=== PATIENT | male | born 1955 | race Caucasian/White ===

== ENCOUNTER 2016-08-31 15:39 | Inpatient (IN) ==
[2016-08-31 17:00] LABS: ALLEN TEST YES; BE -0.3 mmoll (-3.0-3.0); BLOOD TYPE ARTERIAL; DRAW SITE L RADIAL; PCO2(98.6) 38 mmHg (35-45); PO2(98.6) 65 mmHg (60-100); SAMPLE BLOOD; THB 13.8 g/dL (11.5-17.4); pH(98.6) 7.41 (7.35-7.45)
[2016-08-31 17:01] LABS: MODALITY ROOM AIR
[2016-08-31 17:13] LABS: URINE CULTURE NEEDED? NO; URINE MICRO REVIEW NEEDED? NO; URINE SOURCE CLEAN CATCH
[2016-08-31 17:17] LABS: BILIRUBIN URINE NEGATIVE (NEGATIVE); BLOOD URINE NEGATIVE (NEGATIVE); COLOR YELLOW; GLUCOSE URINE >1000 mg/dL (NEGATIVE); LEUKOCYTES URINE NEGATIVE (NEGATIVE); NITRITE URINE NEGATIVE (NEGATIVE); PH URINE 5.5; PROTEIN URINE NEGATIVE (NEGATIVE); SP GRAVITY URINE 1.012; TURBIDITY URINE CLEAR (CLEAR); UR EPITHELIAL CELLS <10 /HPF (<10); URINE BACTERIA NEGATIVE /HPF; URINE RBC <10 /HPF (<10); URINE WBC <10 /HPF (<10); UROBILINOGEN URINE NORMAL (NORMAL)
[2016-08-31 17:36] LABS: MANUAL DIFF NEEDED? NO
--- NOTE | 2016-08-31 17:38 | Diag Imaging Result Document ---
PROCEDURE NAME: HEAD W/O CONTRAST - 08/31/2016 CT OF THE HEAD WITHOUT CONTRAST: FINDINGS: There is no evidence of mass effect, bleed, or abnormal extra-axial fluid collection. There is a lacune in the caudate head on the left. Compared to 01/11/2016, there has been no significant change in the appearance of the brain. IMPRESSION: Chronic ischemic changes. No evidence of acute disease.
--- NOTE | 2016-08-31 17:44 | Diag Imaging Result Document ---
PROCEDURE NAME: CHEST-PORTABLE - 08/31/2016 AP CHEST: FINDINGS: The inspiration is suboptimal. There is opacity in the right lower lobe which is worse than on the previous study of 01/11/2016. This may represent atelectasis versus pneumonia. IMPRESSION: Possible pneumonia right lower lobe.
[2016-08-31 17:46] LABS: BASO% 0.9 % (0.0-0.8); EOS# 0.63 X1000 (0.0-0.7); HEMATOCRIT 36.3 % (42.0-52.0); HEMOGLOBIN 13.1 g/dL (14.0-18.0); IMM GRAN# 0.02 X1000 (0.0-0.04); IMM GRAN% 0.2 % (0.0-0.5); LYMPH# 3.41 X1000 (1.2-3.4); LYMPH% 32.5 % (20.5-51.1); MCHC 36.1 g/dL (33-37); MCV 88.5 FL (81-99); MONO% 18.1 % (1.7-9.3); MPV 10.6 FL (7.4-10.4); NEUT% 42.3 % (42.2-75.2); PLT 249 X1000 (130-400)
[2016-08-31 17:54] LABS: INR 1.2; PROTIME 12.7 Seconds (9.2-11.7); PTT 32.9 Seconds (22.0-36.0)
[2016-08-31 18:01] LABS: AGAP 12; ALBUMIN 3.3 g/dL (3.5-5.0); ALKALINE PHOSPHATASE 133 U/L (32-122); BUN 12 mg/dL (8-22); CALCIUM 9.2 mg/dL (8.8-10.2); CHLORIDE 100 mmol/L (98-107); CK PROFILE 143 U/L (24-204); COSMO 276; GOT 55 U/L (10-34); GPT 32 U/L (10-44); POTASSIUM 4.2 mmol/L (3.5-5.1); SODIUM 134 mmol/L (136-145); TCO2 22 mmol/L (25-35); TOTAL BILIRUBIN 1.06 mg/dL (0.20-1.00); TOTAL PROTEIN 6.9 g/dL (6.3-8.3)
--- NOTE | 2016-08-31 18:05 | PROVIDER DOCUMENTATION ---
This chart was entered by Jhonny Klein Scribe, acting as scribe for Damaso Weaver MD. HPI-Neurological Disorder - General Source: patient, family - History of Present Illness-Neuro Severity: reports: moderate Onset/Duration: reports: gradual, 24 hours ago Timing: reports: still present, constant Context: denies: impaired speech, facial droop, falling, seizure activity Character of Altered Mental Status: reports: N/A Character of Deficits: reports: new weakness. denies: impaired speech New weakness or altered sensation location:: reports: RLE Cognitive Baseline: alert, oriented x3 Gait Baseline: walks without assistance Associated Symptoms: reports: confusion, trouble walking, weakness. denies: headache, fainting, dizziness, nausea, seizures, slurred speech, vomiting Similar Symptoms Previously?: No Recently seen or treated by another doctor?: Yes <Damaso Weaver - Last Filed: 08/31/16 18:04> <López Madden - Last Filed: 08/31/16 18:12> - General Chief Complaint: Stroke-Like Symptoms Stated Complaint: SENT BY MD FOR FURTHER EVAL Time Seen by Provider: 08/31/16 16:39 Allergies/Adverse Reactions: Patient Allergies Allergy/AdvReac Type Severity Reaction Status Date / Time No Known Allergies Allergy Verified 08/31/16 17:55 Home Medications: Home Medication List Medication Instructions Recorded Confirmed Last Taken Type Cyclobenzaprine [Flexeril] 10 mg PO TID PRN 02/16/15 08/31/16 01/11/16 History Insulin Humulin 70/30 [Humulin 30 unit SUBQ QHS 02/16/15 08/31/16 01/10/16 History 70/30] Insulin Humulin 70/30 [Humulin 50 unit SUBQ QAM 02/16/15 08/31/16 01/11/16 History 70/30] Metformin HCl 1,000 mg PO BID 02/16/15 08/31/16 01/11/16 History Pantoprazole [Protonix] 40 mg PO DAILY@0700 02/16/15 08/31/16 01/11/16 History Sertraline [Zoloft] 50 mg PO DAILY 02/16/15 08/31/16 01/11/16 History Simvastatin 10 mg PO QHS 02/16/15 08/31/16 01/10/16 History Tramadol [Ultram] 50 mg PO Q6H PRN PRN 02/16/15 08/31/16 01/11/16 History Eszopiclone 2 mg PO DIRECTED 01/11/16 08/31/16 01/11/16 History Ferrous Sulfate 325 mg PO DIRECTED 01/11/16 08/31/16 01/11/16 History Gabapentin 300 mg PO DIRECTED 01/11/16 08/31/16 01/11/16 History Lactulose 30 ml PO TID #1 appful 01/13/16 08/31/16 Unknown Rx Rifaximin [Xifaxan] 550 mg PO BID #60 tablet 01/13/16 08/31/16 Unknown Rx - History of Present Illness-Neuro Nature of Presenting Problem: Patient is a 61 yo M that presents with confusion and dragging right leg. reports that symptoms began yesterday with confusion and she noticed the dragging of leg this am around 8 oclock. patient went to [place] and was told to come here. He has history of similar symptoms in the past when his ammonia level was elevated due to Non-alcoholic cirrhosis. (Jhonny Klein) Patient is a 61 yo M that presents with confusion and dragging right leg. reports that symptoms began yesterday with confusion and she noticed the dragging of leg this am around 8 oclock. patient went to [place] and was told to come here. He has history of similar symptoms in the past when his ammonia level was elevated due to Non-alcoholic cirrhosis. (Damaso Weaver) Review of Systems - Adult - REVIEW OF SYSTEMS - ADULT Constitutional: denies: chills, fever Eyes: denies: decreased vision, blurred vision, double vision Ears, Nose, Mouth & Throat: denies: ear discharge, ear pain, sinus problem, throat pain, throat swelling Cardiovascular: denies: chest pain, palpitations, syncope Respiratory: denies: chronic cough, cough, shortness of breath, wheezing Gastrointestinal: denies: abdominal pain, diarrhea, nausea, vomiting Genitourinary: reports: no symptoms reported Musculoskeletal: denies: back pain, joint pain, neck pain Integumentary: reports: no symptoms reported Neurological: reports: other (confusion, leg weakness). denies: ataxia, dizziness/vertigo, headache/migraines Psychiatric: reports: no symptoms reported Endocrine: reports: no symptoms reported Hematologic/Lymphatic: reports: no symptoms reported Allergic/Immunologic: reports: no symptoms reported All Other Systems: Reviewed and Negative <OwenDamaso Gimenez - Last Filed: 08/31/16 18:04> - REVIEW OF SYSTEMS - ADULT Constitutional: denies: fever <López Madden - Last Filed: 08/31/16 18:12> Past History - Adult - PAST MEDICAL HISTORY-ADULT Review of Records: reports: Old Records Reviewed, Nursing Assessment Review, Medications Reviewed Cardiovascular: reports: HTN Gastrointestinal: reports: GERD, liver disease (non-alcoholic cirrhosis) Musculoskeletal: reports: chronic pain (neck) Endocrine/Immune: reports: Diabetes - PRIOR SURGERIES/PROCEDURES Surgical/Procedure History: reports: orthopedic (extremity), other (spleenectomy ) - IMMUNIZATION STATUS Childhood Immunizations: See Nurse Assessment Flu Vaccine: See Nurse Assessment - FAMILY HISTORY Family History: reviewed, not pertinent - SOCIAL HISTORY Living Situation: family <Damaso Weaver - Last Filed: 08/31/16 18:04> - PAST MEDICAL HISTORY-ADULT Review of Records: reports: Old Records Reviewed, Nursing Assessment Review, Medications Reviewed, Social history reviewed & non-contributory. <López Madden - Last Filed: 08/31/16 18:12> Physical Exam- Neurological - Physical Exam-Neuro Initial Vital Signs Reviewed: Yes General Appearance: alert, no apparent distress Eye Exam: bilateral eye: normal inspection, PERRL HENMT: normocephalic/atraumatic, moist mucous membranes, normal ENT inspection Head Injury: no evidence of injury. negative: ecchymosis, flap Neck: full range of motion, normal inspection Respiratory: lungs clear, normal breath sounds, no respiratory distress, no accessory muscle use Cardiovascular: regular rate, rhythm, no edema, no murmur Abdominal Exam: normal bowel sounds, non tender, soft, no organomegaly, no pulsatile mass Extremity: normal range of motion, normal inspection, no pedal edema, normal capillary refill top taper machine Exam: normal hearing, normal speech, PERRL Motor/Sensory: no motor deficit, no sensory deficit Neurologic: top taper machine II-XII nml as tested, no motor/sensory deficits. negative: aphasia, EOM palsy, facial droop, focal weakness, motor weakness, sensory deficit Integumentary: normal color, warm/dry Psych/Mental Status: normal mood/affect, normal thought content, normal thought process, oriented x 3 - Glascow Coma Scale Best Eye Response: (4) open spontaneously Best Verbal Response: (5) oriented Best Motor Response: (6) obeys commands Total Glascow Score: 15 <Damaso Weaver - Last Filed: 08/31/16 18:04> - Physical Exam-Neuro Initial Vital Signs Reviewed: Yes General Appearance: alert, no apparent distress <López Madden - Last Filed: 08/31/16 18:12> Progress - PLAN OF CARE/RESULTS Result Diagrams: 08/31/16 17:20 08/31/16 17:20 - EKG 1 Time of EKG reading by physician:: 16:12 EKG Read and Signed by:: Damaso Weaver EKG Interpretation (*Must complete 3 of following elements*): Normal Rate: 72 Rhythm: NSR [place]: normal QRS: normal [place] Interval: normal ST Wave: normal - XRAY 1 XRAY Study: Chest Impression: Abnormal XRAY Interpretation: pneumonia vs atelectasis, RLL - CT/MRI 1 CT Study: Head Impression: Normal CT Results: nad per <Damaso Weaver - Last Filed: 08/31/16 18:04> - PLAN OF CARE/RESULTS Result Diagrams: 08/31/16 17:20 08/31/16 17:20 <López Madden - Last Filed: 08/31/16 18:12> - PLAN OF CARE/RESULTS Progress/Plan/Lab Results: Vital Signs - 8 hr 08/31/16 16:07 Temperature 97.8 F Pulse Rate 73 Respiratory Rate 20 Blood Pressure 131/60 O2 Sat by Pulse Oximetry 93 L Laboratory Results - last 24 hr 08/31/16 08/31/16 08/31/16 16:50 16:55 17:20 WBC RBC Hgb Hct MCV MCH MCHC RDW Std Deviation Plt Count MPV Immature Gran % (Auto) Neut % (Auto) Lymph % (Auto) [place] % (Auto) Eos % (Auto) Baso % (Auto) Immature Gran # (Auto) Neut # (Auto) Lymph # (Auto) [place] # (Auto) Eos # (Auto) Baso # (Auto) PT INR PTT (Actin FS) Specimen Type ARTERIAL Sample Site L RADIAL pH 7.41 pCO2 38 pO2 65 HCO3 24.6 Base Excess -0.3 Oxyhemoglobin 93.0 L ABG O2 Sat (Calculated) 18.0 ABG O2 Saturation 96.0 ABG Carboxyhemoglobin 2.10 ABG Methemoglobin 1.0 José Manuel Test YES A-a O2 Difference 37.0 Total Hemoglobin 13.8 Lactate 1.90 Blood Gas Modality ROOM AIR FiO2 % 21.0 Sodium Potassium Chloride Carbon Dioxide Anion Gap BUN Creatinine Estimated GFR/1.73 m2 BUN/Creatinine Ratio Glucose Calculated Osmolality Calcium Total Bilirubin AST ALT Alkaline Phosphatase Ammonia Creatine Kinase Troponin T Total Protein Albumin Globulin Albumin/Globulin Ratio Plasma Lactate Urine Source CLEAN CATCH Urine Color YELLOW Urine Turbidity CLEAR Urine pH 5.5 Ur Specific [place] 1.012 Urine Protein NEGATIVE Ur Glucose (Stick) >1000 A Ur Ketones (Stick) NEGATIVE Urine Blood NEGATIVE Urine Nitrite NEGATIVE Urine Bilirubin NEGATIVE Urobilinogen Dipstick NORMAL Urine Leukocytes NEGATIVE Urine WBC (Auto) <10 Urine RBC (Auto) <10 U Epithel Cells (Auto) <10 Urine Bacteria (Auto) NEGATIVE Plasma/Serum Ethyl Alc 08/31/16 08/31/16 08/31/16 17:20 17:20 17:20 WBC 10.49 RBC 4.10 L Hgb 13.1 L Hct 36.3 L MCV 88.5 MCH 32.0 H MCHC 36.1 RDW Std Deviation 15.7 H Plt Count 249 MPV 10.6 H Immature Gran % (Auto) 0.2 Neut % (Auto) 42.3 Lymph % (Auto) 32.5 [place] % (Auto) 18.1 H Eos % (Auto) 6.0 Baso % (Auto) 0.9 H Immature Gran # (Auto) 0.02 Neut # (Auto) 4.44 Lymph # (Auto) 3.41 H [place] # (Auto) 1.90 H Eos # (Auto) 0.63 Baso # (Auto) 0.09 PT INR PTT (Actin FS) Specimen Type Sample Site pH pCO2 pO2 HCO3 Base Excess Oxyhemoglobin ABG O2 Sat (Calculated) ABG O2 Saturation ABG Carboxyhemoglobin ABG Methemoglobin José Manuel Test A-a O2 Difference Total Hemoglobin Lactate Blood Gas Modality FiO2 % Sodium 134 L Potassium 4.2 Chloride 100 Carbon Dioxide 22 L Anion Gap 12 BUN 12 Creatinine 1.0 Estimated GFR/1.73 m2 > 60 BUN/Creatinine Ratio 12 Glucose 234 H Calculated Osmolality 276 Calcium 9.2 Total Bilirubin 1.06 H AST 55 H ALT 32 Alkaline Phosphatase 133 H Ammonia 108 H Creatine Kinase 143 Troponin T Total Protein 6.9 Albumin 3.3 L Globulin 3.6 Albumin/Globulin Ratio 0.9 Plasma Lactate Urine Source Urine Color Urine Turbidity Urine pH Ur Specific [place] Urine Protein Ur Glucose (Stick) Ur Ketones (Stick) Urine Blood Urine Nitrite Urine Bilirubin Urobilinogen Dipstick Urine Leukocytes Urine WBC (Auto) Urine RBC (Auto) U Epithel Cells (Auto) Urine Bacteria (Auto) Plasma/Serum Ethyl Alc 08/31/16 08/31/16 08/31/16 17:20 17:20 17:20 WBC RBC Hgb Hct MCV MCH MCHC RDW Std Deviation Plt Count MPV Immature Gran % (Auto) Neut % (Auto) Lymph % (Auto) [place] % (Auto) Eos % (Auto) Baso % (Auto) Immature Gran # (Auto) Neut # (Auto) Lymph # (Auto) [place] # (Auto) Eos # (Auto) Baso # (Auto) PT 12.7 H INR 1.20 PTT (Actin FS) 32.9 Specimen Type Sample Site pH pCO2 pO2 HCO3 Base Excess Oxyhemoglobin ABG O2 Sat (Calculated) ABG O2 Saturation ABG Carboxyhemoglobin ABG Methemoglobin José Manuel Test A-a O2 Difference Total Hemoglobin Lactate Blood Gas Modality FiO2 % Sodium Potassium Chloride Carbon Dioxide Anion Gap BUN Creatinine Estimated GFR/1.73 m2 BUN/Creatinine Ratio Glucose Calculated Osmolality Calcium Total Bilirubin AST ALT Alkaline Phosphatase Ammonia Creatine Kinase Troponin T < 0.010 Total Protein Albumin Globulin Albumin/Globulin Ratio Plasma Lactate 2.0 Urine Source Urine Color Urine Turbidity Urine pH Ur Specific [place] Urine Protein Ur Glucose (Stick) Ur Ketones (Stick) Urine Blood Urine Nitrite Urine Bilirubin Urobilinogen Dipstick Urine Leukocytes Urine WBC (Auto) Urine RBC (Auto) U Epithel Cells (Auto) Urine Bacteria (Auto) Plasma/Serum Ethyl Alc Orders Category Date Time Status Cardiac Monitoring DIRECTED Care 08/31/16 16:40 Active FSBS [Finger Stick Blood Sugar (ED)] DIRECTED Care 08/31/16 16:12 Active Oxygen Therapy- ED Nursing DIRECTED Care 08/31/16 16:40 Active Saline Loc NOW Care 08/31/16 16:40 Active CHEST-PORTABLE [RAD] Stat Exams 08/31/16 16:40 Draft HEAD W/O CONTRAST [CT] Stat Exams 08/31/16 16:44 Completed ABG [RESP] Routine Lab 08/31/16 16:50 Completed ALCOHOL BLOOD Stat Lab 08/31/16 17:20 Completed AMMONIA [CHEM] Stat Lab 08/31/16 17:20 Completed CBC WITH ELECTRONIC DIFF [HEME] Stat Lab 08/31/16 17:20 Completed CK PROFILE [SP CHEM] Stat Lab 08/31/16 17:20 Completed COMPREHENSIVE METABOLIC PANEL [CHEM] Stat Lab 08/31/16 17:20 Completed GLUCOSE [CHEM] Stat Lab 08/31/16 17:53 Ordered LACTATE, PLASMA [CHEM] Stat Lab 08/31/16 17:20 Completed PROTIME WITH INR [COAG] Stat Lab 08/31/16 17:20 Completed PTT [COAG] Stat Lab 08/31/16 17:20 Completed TROPONIN T Stat Lab 08/31/16 17:20 Completed URINALYSIS W/POSS RFLX CULT-1 [URINALYSIS] Stat Lab 08/31/16 16:55 Completed URINE DRUG SCREEN Stat Lab 08/31/16 16:55 Received Lactulose Med 08/31/16 18:06 Discontinued 30 ml PO NOW ONE Rifaximin [Xifaxan] Med 08/31/16 18:11 Once 550 mg PO NOW ONE Pulse Oximetry Stat Oth 08/31/16 16:40 Active EKG [EKG] Stat Ther 08/31/16 16:09 Ordered EKG [EKG] Stat Ther 08/31/16 16:40 Ordered Departure <Damaso Weaver X - Last Filed: 08/31/16 18:04> - Departure Time of Disposition Decision: 18:11 Certified Medical Emergency: Emergent - Critical Care Note This patient required my direct & personal management of CC.: No <López Madden - Last Filed: 08/31/16 18:12> - Departure DIAGNOSIS: Hepatic encephalopathy Disposition: ADMITTED INPATIENT 09 Condition: Fair Referrals and Follow-Ups: None,PCP [Primary Care Provider] - This chart was documented by the indicated scribe, (Jhonny Klein, Luciibleticia) and accurately reflects the services I performed and decisions made by me, Damaso Weaver MD, as attested by the provider's signature.
[2016-08-31] MEDS ORDERED: LACTULOSE PO ONE (18:06)
[2016-08-31] MEDS ORDERED: XIFAXAN PO ONE (18:11)
[2016-08-31 18:14] LABS: UR AMPHETAMINES QUAL NONE DETECTED (NONE DETECT); UR BARBITUATES QUAL NONE DETECTED (NONE DETECT); UR BENZODIAZEPIN QUAL NONE DETECTED (NONE DETECT); UR CANNABINOIDS QUAL NONE DETECTED (NONE DETECT); UR COCAINE QUAL NONE DETECTED (NONE DETECT); UR METHADONE QUAL NONE DETECTED (NONE DETECT); UR OPIATES QUAL NONE DETECTED (NONE DETECT); UR OXYCODONE QUAL NONE DETECTED (NONE DETECT); UR PCP QUAL NONE DETECTED (NONE DETECT)
[2016-08-31] MEDS ORDERED: NS 1,000 ML IV ONE (20:03)
--- NOTE | 2016-08-31 20:35 | HISTORY AND PHYSICAL ---
HISTORY OF PRESENT ILLNESS: This 61-year-old who presented with over the last several days of more confusion. He stated that his speech was slurred, a little more lethargy. They denied any fever or chills. Denied any trauma or head trauma. No real focal neurologic deficits. PAST MEDICAL HISTORY: His past medical history is interesting. 1. History of sleep apnea. 2. Diabetes mellitus type 2. 3. Dyslipidemia. 4. Nonalcoholic steatohepatitis with cirrhosis. He has had hepatic encephalopathy before. He is on lactulose. 5. 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 PAST SURGICAL HISTORY: 1. 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 2. C5-C6 fusion surgery. FAMILY HISTORY: Positive for coronary artery disease. No cancer. No other liver disease. SOCIAL HISTORY: No tobacco. No alcohol. 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 ALLERGIES: No known drug allergies. REVIEW OF SYSTEMS: He states he has been eating okay. He states his bowels have been moving okay. He reports that he is taking lactulose 45 mL 4 times a day. PHYSICAL EXAMINATION: VITAL SIGNS: Temp 97.8 degrees, pulse 70, respirations 20, blood pressure 131/60, O2 saturation 93%. HEENT: Pupils are equal and round. CVP less than 6 cm. LUNGS: Clear anterolateral. CARDIOVASCULAR: Regular rate and rhythm, without murmur or S3. ABDOMEN: Soft, nontender, nondistended. No organomegaly appreciated. A little bit uncomfortable in the right upper quadrant. I did not appreciate any ascites WEIGHT/HEIGHT: Weight 220 pounds, height 5 feet 7 inches. EXTREMITIES: Without clubbing, cyanosis, or edema. LAB: White count 10,490, hematocrit 36, platelet count 249,000. Sodium 134, potassium 4.2, chloride 100, bicarbonate 22, BUN 12, creatinine 1.0, blood sugar 234, calcium 9.2. Liver functions: AST 55, ALT 32, total bilirubin 1.06, alkaline phosphatase 133, PT was 12.5, PTT was 32. His ammonia level was 108. Toxicology: Urine drug screen really unremarkable. No sign of opiates, oxycodone, methadone, barbiturates, phencyclidine, amphetamines, benzodiazepines, cocaine, and cannabinoids. Urinalysis unremarkable. Blood sugar though was greater than 1000 in the urine screen. Glucose was 234 in the serum. Chest x-ray: Possible pneumonia in right lower lobe. CT of the head: Chronic ischemic changes. No evidence of acute disease. MEDICATIONS AT HOME: 1. Flexeril 10 mg t.i.d. 2. Zopiclone 2 mg as directed. 3. Ferrous sulfate 325 mg daily. 4. Gabapentin 300 mg a day. I am not sure how often he is taking that. 5. Humulin 70/30, 30 units at night, 50 units in the morning. 6. Lactulose 30 mL p.o. t.i.d. 7. Metformin 1000 mg b.i.d. 8. Protonix 40 mg daily. 9. Rifaximin 550 mg b.i.d. 10. Sertraline 50 mg daily. 11. Simvastatin 10 mg at bedtime. 12. Tramadol 50 mg q.6 hours. ASSESSMENT AND PLAN: 1. A little more confusion, lethargy, slurring of his words. 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 It sounds like metabolic encephalopathy most probably related to his elevated ammonia level and hepatic encephalopathy. Now he reports that he is taking his medicine like he is supposed to but he has had confusion per his . I am not sure we know that. What we will do for now is we will give him 45 mL of lactulose 4 times a day. We will make sure he is getting his rifaximin 550 mg b.i.d., and we will follow his ammonia level. I am going to ask GI to help. He is followed by a GI doctor at the [place] but he lives here and has had a couple of admissions here. It would be nice to have a electronic wirer who he could follow up with. 2. Diabetes mellitus type 2. We will check pattern sugars. I am inclined to keep him on his same insulin regimen. His sugars are running above 200. I am not sure how well we kept to that regimen either but we will check a sliding scale or check pattern sugars and put him on sliding scale in addition to his split 70/30. He did 30 units at night and 50 units in the morning. I am inclined to want to hold his metformin given his underlying liver disease and I am not sure how much benefit the metformin is going to give, so I think we may stop that for now. Continue his Protonix 40 mg a day. 3. History of hyperlipidemia. Continue simvastatin. 4. Apparently some discomfort from peripheral neuropathy so continue his gabapentin. Right now it looks like he takes 300 mg once a day but we will check on that. 5. History of depression and anxiety. Continue Zoloft. 6. We will check T4, TSH, B12 and folate. We will repeat a Chem 22 in the morning with ammonia level. We will check amylase and lipase in the morning even though no evidence of any tenderness and see what his levels are, and look at his clinical examination. 7. We will give him some fluids with normal saline. I think we will run it at 85 mL an hour for now. Apparently he has had some Lasix or was given some Lasix. I do not see that on his list so I do not see any evidence of ascites at this time. His volume status looks good. His serum creatinine was 1.0 so we will give him a little bit of fluid and see if it will help. cc: José Manuel Bahena MD
[2016-08-31] MEDS: ZOCOR PO SCH (22:53)
[2016-08-31] MEDS: LACTULOSE PO SCH (22:54)
[2016-08-31] MEDS: HUMULIN 70/30 SUBQ SCH (22:59)
[2016-08-31] MEDS: HUMALOG SUBQ SCH (22:59)
[2016-08-31] MEDS: XIFAXAN PO SCH (23:04)
[2016-09-01 05:47] LABS: HEMATOCRIT 35.8 % (42.0-52.0); HEMOGLOBIN 12.6 g/dL (14.0-18.0); MCH 31.9 PG (27-31); MCHC 35.2 g/dL (33-37); MCV 90.6 FL (81-99); MPV 10.5 FL (7.4-10.4); RBC 3.95 XMIL (4.7-6.1)
[2016-09-01 05:51] LABS: HEMOGLOBIN A1C 8.5 % (4.8-6.0)
[2016-09-01 06:38] LABS: AMYLASE 75 U/L (20-200); LIPASE 22 U/L (13-60)
[2016-09-01] MEDS: HUMALOG SUBQ SCH ×4 (06:38→22:34)
[2016-09-01] MEDS: PROTONIX PO SCH (06:38)
[2016-09-01 06:41] LABS: AGAP 12; ALKALINE PHOSPHATASE 126 U/L (32-122); BUN 12 mg/dL (8-22); CALCIUM 9.8 mg/dL (8.8-10.2); CHLORIDE 101 mmol/L (98-107); COSMO 282; GOT 58 U/L (10-34); GPT 31 U/L (10-44); HDL 31 mg/dL (35-55); IRON SATURATION 78 %; LDL 87 mg/dL; POTASSIUM 4.2 mmol/L (3.5-5.1); SODIUM 138 mmol/L (136-145); TCO2 25 mmol/L (25-35); TIBC 196 ug/dL; TOTAL BILIRUBIN 1.07 mg/dL (0.20-1.00); TOTAL IRON 152 ug/dL (53-167); TOTAL PROTEIN 6.5 g/dL (6.3-8.3); TRIGLYCERIDES 187 mg/dL (39-160); UNBOUND IRON 44 ug/dL (112-346); VLDL 37 mg/dL
--- NOTE | 2016-09-01 07:19 | EKG Report ---
Test Performed on : 08/31/2016 4:12:50 PM Test Reason : slurred speech Blood Pressure : / mmHG Vent. Rate : 072 BPM Atrial Rate : 072 BPM P-R Int : 132 ms QRS Dur : 090 ms QT Int : 390 ms P-R-T Axes : 030 -04 025 degrees QTc Int : 427 ms Normal sinus rhythm. Normal ECG No previous ECGs available Unconfirmed Result
--- NOTE | 2016-09-01 08:14 | Diag Imaging Result Doc PS360 ---
CHEST-2 VIEWS - 09/01/2016 INDICATION: Pneumonia COMPARISON: 08/31/2016 FINDINGS: The lungs are normally expanded and clear. Heart size and mediastinal contours are normal. No pneumothorax or pleural effusion. IMPRESSION: Negative exam. Electronically signed by Sergo Thibodeaux 09/01/2016 8:11 AM
--- NOTE | 2016-09-01 09:14 | Diag Imaging Result Doc PS360 ---
US ABDOMEN-COMPLETE - 09/01/2016 INDICATION: Hepatic encephalopathy COMPARISON: None FINDINGS: The liver, gallbladder, and spleen are normal. The pancreas is mostly obscured. There is a stable small right renal cyst measuring 1.7 cm. The left kidney is normal. Common bile duct measures 5 mm. Aortic, IVC, and main portal vein are patent. IMPRESSION: No change from prior. No acute disease. Electronically signed by Sergo Thibodeaux 09/01/2016 9:12 AM
[2016-09-01] MEDS: LACTULOSE PO SCH ×4 (09:40→22:34)
[2016-09-01] MEDS: XIFAXAN PO SCH ×2 (09:40→22:34)
[2016-09-01] MEDS: NEURONTIN PO SCH (09:40)
[2016-09-01] MEDS: LOVENOX SUBQ SCH (09:40)
[2016-09-01] MEDS: FERROUS SULFATE PO SCH (09:41)
[2016-09-01] MEDS: HUMULIN 70/30 SUBQ SCH ×2 (09:42→22:33)
[2016-09-01] MEDS: ZOLOFT PO SCH (09:44)
[2016-09-01 12:26] LABS: HEPATITIS PROFILE ACUTE SEE COMMENTS
--- NOTE | 2016-09-01 15:55 | PROGRESS NOTE ---
DATE: 09/01/2016 SUBJECTIVE: Patient is sitting up in bed, and he appears more alert today per at bedside. She does feel like he has had significant improvement, and was wanting to take the patient back home. OBJECTIVE: Vital signs: Temperature is 97.6 degrees, heart rate 68, respirations 16, blood pressure is 119/70, O2 is 94% on 2 L nasal cannula. General: Mr. Rendon is a pleasant 61-year-old male who is sitting up in bed, at bedside. The patient is more talkative today, did not note any slurring of his speech. feels that he is much improved today, was actually wanting to take him back home. HEENT: Atraumatic normocephalic. PERRLA. Neck: Supple. Trachea midline. CV: No murmurs, gallops, rubs noted. Respiratory: Lung sounds clear to excursion. Nonlabored breathing. GI: Soft, nontender, nondistended. Positive bowel sounds 4 quadrants. Extremities: Negative for edema. Bilateral pedal pulses are palpable. Neuro: No focal deficits noted. DIAGNOSTIC DATA: Abdominal ultrasound showed no change from prior, no acute disease. Chest x-ray shows that the lungs are normally expanded and clear. Heart size and mediastinal contours are normal. No pneumothorax or pleural effusion. LABORATORY DATA: White count is 11, hemoglobin 12, hematocrit 35, platelet count is 240,000. Chemistry: Sodium 138, potassium 4.2, BUN 12, creatinine 0.9. Blood glucose is 213, hemoglobin A1c was 8.5. Alkaline phosphatase 126, AST is 58, ALT is 31. Ammonia level was down to 98 from 108. ASSESSMENT AND PLAN: 1. Metabolic encephalopathy secondary to elevated ammonia level. The patient is more awake and alert today. Did not appreciate any slurring of speech. No focal deficits noted. We will continue on patient's lactulose and Xifaxan. 2. Diabetes mellitus type 2, uncontrolled. Continue with pattern sugars and sliding scale. 3. Nonalcoholic steatohepatitis with cirrhosis. 4. Dyslipidemia. Continue statin. 5. Sleep apnea history. 6. Idiopathic thrombocytopenic purpura status post splenomegaly. 7. Peripheral neuropathy. Continue gabapentin. 8. History of depression and anxiety. Continue Zoloft. 9. Further recommendations to follow physician evaluation. Dictated by SHARON Nevarez for José Manuel Bahena MD cc: José Manuel Bahena MD
[2016-09-01] MEDS: ZOCOR PO SCH (22:34)
[2016-09-02 05:39] LABS: HEMATOCRIT 36.7 % (42.0-52.0); HEMOGLOBIN 12.9 g/dL (14.0-18.0); MCH 31.9 PG (27-31); MCHC 35.1 g/dL (33-37); MCV 90.8 FL (81-99); MPV 10.4 FL (7.4-10.4); RBC 4.04 XMIL (4.7-6.1)
[2016-09-02 05:50] LABS: AGAP 10; ALKALINE PHOSPHATASE 126 U/L (32-122); BUN 11 mg/dL (8-22); CHLORIDE 101 mmol/L (98-107); COSMO 275; GOT 60 U/L (10-34); GPT 34 U/L (10-44); POTASSIUM 3.8 mmol/L (3.5-5.1); SODIUM 136 mmol/L (136-145); TCO2 25 mmol/L (25-35); TOTAL BILIRUBIN 1.29 mg/dL (0.20-1.00); TOTAL PROTEIN 6.7 g/dL (6.3-8.3)
[2016-09-02] MEDS: HUMALOG SUBQ SCH ×2 (06:13→11:20)
[2016-09-02 07:30] VITALS: BP 135/71
[2016-09-02] MEDS: PROTONIX PO SCH (07:35)
[2016-09-02] MEDS: HUMULIN 70/30 SUBQ SCH (09:32)
[2016-09-02] MEDS: FERROUS SULFATE PO SCH (09:32)
[2016-09-02] MEDS: ZOLOFT PO SCH (09:33)
[2016-09-02] MEDS: LOVENOX SUBQ SCH (09:33)
[2016-09-02] MEDS: NEURONTIN PO SCH (09:33)
[2016-09-02] MEDS: LACTULOSE PO SCH (09:33)
[2016-09-02] MEDS: XIFAXAN PO SCH (09:33)
--- NOTE | 2016-09-02 12:09 | DISCHARGE SUMMARY ---
ADMISSION DATE: 08/31/2016 DISCHARGE DATE: 09/02/2016 HISTORY AND HOSPITAL COURSE: This 61-year-old for the past several days had more confusion, a little bit of slurred speech, some more lethargy. Presented and his ammonia level was above 100. He did report that he was taking his medications. Did not have any tenderness. No sign of peritonitis. No sign of infection. Bowels had been moving but maybe a little bit of constipation. The patient improved. Given some IV fluids. We continued his lactulose and we went up to 45 mg 4 times a day. We kept him on rifaximin 550 mg b.i.d. [place] he could go home on 09/02/2016. Confusion much better, walking, balance good, eating well. DISCHARGE MEDICATIONS: He will go home on ferrous sulfate 325 mg a day, Neurontin 300 mg a day, insulin 70/30 which is Humulin 38 units at bedtime and 50 units q.a.m., lactulose 45 mL 4 times a day, Protonix 40 mg a day, Xifaxan which is rifaximin 550 mg b.i.d., Zoloft 50 mg a day, Zocor 10 mg a day. I gave him a work release to go back to work on the . cc: José Manuel Bahena MD
--- NOTE | 2016-09-02 20:33 | CONSULTATION ---
DATE OF CONSULTATION: 09/02/2016 PRIMARY CARE PROVIDER: [facility]. CHIEF COMPLAINT: Lethargy. HISTORY OF PRESENT ILLNESS: The patient is a 61-year-old white male who has nonalcoholic steatohepatitis with cirrhosis that has been complicated by hepatic encephalopathy. He is currently followed by the [facility] and states that he would like to return there for his ongoing care. He was admitted due to increasing slurred speech and lethargy. He admits that he had slacked off on his lactulose and become somewhat constipated. Since admission, his lactulose has been resumed and his hepatic encephalopathy has improved. The patient feels that mentally he is back to baseline. He states that he is ready to go home. We are asked to participate in his care. PAST MEDICAL HISTORY: 1. Sleep apnea. 2. Diabetes mellitus. 3. Dyslipidemia. 4. Nonalcoholic steatohepatitis. 5. Cirrhosis. 6. Hepatic encephalopathy. 7. Idiopathic thrombocytopenia. SURGICAL HISTORY: 1. Splenectomy. 2. C5-C6 fusion. FAMILY HISTORY: Negative for colon cancer and liver disease. There is a family history of coronary artery disease. SOCIAL HISTORY: Remarkable in that he denies tobacco, alcohol and recreational drug use. He is a retired . 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 He denies intravenous drug use. MEDICATION ALLERGIES: None. HOME MEDICATIONS: Were reviewed as available in the MAR. REVIEW OF SYSTEMS: Remarkable for regular defecation, on lactulose 45 mL 4 times a day. PHYSICAL EXAMINATION: Vital Signs: His blood pressure is 105/57, pulse is 71, respirations 16, temperature of 98.1 degrees. His oxygen saturation is 91% on room air, at 97% on 2 L per nasal cannula. HEENT: Negative for jaundice. His oropharyngeal mucosal membranes are normal. Pulmonary: Lungs are clear to auscultation with normal expiratory effort. Cardiovascular: Reveals regular rate and rhythm with no murmurs, gallops, or rubs. Abdominal: Reveals normoactive bowel sounds. The abdomen is soft and nontender with no rebound or guarding. He does have central adiposity. Extremities: Negative for cyanosis, clubbing, or edema. Neurologic: He is alert and oriented x3 with the appropriate mood, affect, and memory. OBJECTIVE DATA: Remarkable for hemoglobin of 12.6 with hematocrit of 35.8, and a white count of 11.66. He has 240,000 platelets. His serum chemistries are remarkable for sodium of 138, potassium 4.2, chloride 101, CO2 of 25, BUN 12, creatinine 0.9 with a glucose of 213. Hemoglobin A1c is 8.5. Calcium is 9.8, total bilirubin 1.07, AST 58, ALT 31, alkaline phosphatase 126, total protein 6.5, and albumin 3. His ammonia is 98, which is an interval improvement from his admission ammonia of 108. His plasma lactate on admission was 2. His vitamin B12 was 650 with a TSH of 6.01 and a folic acid of 13.3. His amylase and lipase are normal at 75 and 22 respectively. IMPRESSION: 1. Known nonalcoholic steatohepatitis with cirrhosis. 2. Known hepatic encephalopathy. 3. Central obesity with a body mass index of 34.5. 4. Diabetes mellitus type 2. RECOMMENDATION: 1. Since the patient has resumed his home medications, he has made an interval improvement and has returned to baseline according to his family. If his ammonia level continues to decline in the morning, he will be stable for discharge. 2. He plans to resume care at the [facility]. 3. Please note that he has a mildly elevated white count which is of unknown significance. It bears monitoring and may require further evaluation either as an inpatient or an outpatient. 4. Because the patient is being followed at the [facility], we will sign off. We are happy to be available to help manage his local care in the future. cc: MD José Manuel Branham MD [place], AL LINDEN
== END 2016-09-02 12:52 | disposition home or self-care (01) ==
LOC: ED 15:39 → 4N 19:36 → SUATTDRO 19:36
PROVIDERS: ATTEND Emergency Medicine

== ENCOUNTER 2016-11-09 15:46 | Observation (INO) ==
[2016-11-09 17:22] LABS: URINE CULTURE PL NEEDED? NO
[2016-11-09 17:34] LABS: MANUAL DIFF NEEDED? NO
[2016-11-09 17:47] LABS: UR AMPHETAMINES QUAL NONE DETECTED (NONE DETECT); UR BARBITUATES QUAL NONE DETECTED (NONE DETECT); UR BENZODIAZEPIN QUAL NONE DETECTED (NONE DETECT); UR CANNABINOIDS QUAL NONE DETECTED (NONE DETECT); UR COCAINE QUAL NONE DETECTED (NONE DETECT); UR MDMA QUAL NONE DETECTED (NONE DETECT); UR METHADONE QUAL NONE DETECTED (NONE DETECT); UR METHAMPHETAMINE QUAL NONE DETECTED (NONE DETECT); UR OPIATES QUAL PRESUMPTIVE POSITIVE (NONE DETECT); UR OXYCODONE QUAL PRESUMPTIVE POSITIVE (NONE DETECT); UR PCP QUAL NONE DETECTED (NONE DETECT); UR TCA QUAL PRESUMPTIVE POSITIVE (NONE DETECT)
[2016-11-09 17:48] LABS: BASO% 0.8 % (0.0-0.8); EOS# 0.61 X1000 (0.0-0.7); EOS% 5.5 % (0.0-10.0); HEMATOCRIT 34.8 % (42.0-52.0); HEMOGLOBIN 12.3 g/dL (14.0-18.0); IMM GRAN# 0.02 X1000 (0.0-0.04); IMM GRAN% 0.2 % (0.0-0.5); LYMPH# 3.79 X1000 (1.2-3.4); LYMPH% 34.3 % (20.5-51.1); MCH 31.9 PG (27-31); MCHC 35.3 g/dL (33-37); MCV 90.2 FL (81-99); MONO# 1.74 X1000 (0.11-0.59); MONO% 15.7 % (1.7-9.3); MPV 10.8 FL (7.4-10.4); NEUT% 43.5 % (42.2-75.2); PLT 232 X1000 (130-400); RBC 3.86 XMIL (4.7-6.1)
[2016-11-09 17:48] LABS: BILIRUBIN URINE NEGATIVE (NEGATIVE); BLOOD URINE 2+ (NEGATIVE); CLARITY CLEAR (CLEAR); COLOR YELLOW; GLUCOSE URINE NEGATIVE (NEGATIVE); LEUKOCYTES URINE NEGATIVE (NEGATIVE); NITRITE URINE NEGATIVE (NEGATIVE); PH URINE 6.5; PROTEIN URINE NEGATIVE (NEGATIVE); UROBILINOGEN URINE NORMAL
[2016-11-09 17:50] LABS: AGAP 11; ALKALINE PHOSPHATASE 133 U/L (32-122); AMYLASE 57 U/L (20-200); BUN 17 mg/dL (8-22); CALCIUM 8.8 mg/dL (8.8-10.2); CHLORIDE 98 mmol/L (98-107); COSMO 266; GOT 191 U/L (10-34); GPT 52 U/L (10-44); LIPASE 11 U/L (13-60); POTASSIUM 4.3 mmol/L (3.5-5.1); SODIUM 131 mmol/L (136-145); TCO2 23 mmol/L (25-35); TOTAL PROTEIN 6.7 g/dL (6.3-8.3)
[2016-11-09 18:09] LABS: URINE EPITHELIAL CELLS <10 /HPF (<10); URINE RBC <10 /HPF (<10); URINE SOURCE CLEAN CATCH; URINE WBC <10 /HPF (<10)
[2016-11-09] MEDS ORDERED: LACTULOSE PO ONE ×2 (18:16→22:00)
[2016-11-09] MEDS ORDERED: NS 1,000 ML IV ONE (18:16)
--- NOTE | 2016-11-09 19:17 | PROVIDER DOCUMENTATION ---
HPI-Musculoskeletal Pain/Inj - GENERAL Chief Complaint: General Adult Stated Complaint: HIP PAIN Time Seen by Provider: 11/09/16 16:24 Source: patient, family - HX OF PRESENT ILLNESS-MUSKULOSKELTAL Nature of Presenting Problem: PT C/O PAIN TO RT HIP/BUTTOCK EXTENDING INTO RT THIGH. DENIES INJURY. STS HE WAS AT COURT TRYING TO GET SS BENEFITS TODAY AND THEY THOUGHT HE WAS DRUNK. STS HE WANTS PROOF THAT HE ISN'T DRUNK SO THEY WILL GIVE HIM HIS BENEFITS. Quality of Pain: reports: dull Severity in ED: moderate Onset/Duration: 24 hours ago Timing: still present Modifying Factors: improves with: nothing Any recent injury?: No Similar Symptoms Previously?: No Recently seen or treated by another doctor?: No - LOWER EXTREMITY PAIN/INJURY Lower Extremities Pain: hip: right, thigh: right Associated Symptoms: reports: denies symptoms Review of Systems - Adult - REVIEW OF SYSTEMS - ADULT Constitutional: reports: no symptoms reported Eyes: reports: no symptoms reported Ears, Nose, Mouth & Throat: reports: no symptoms reported Cardiovascular: reports: no symptoms reported Respiratory: reports: no symptoms reported Gastrointestinal: reports: no symptoms reported Genitourinary: reports: no symptoms reported Musculoskeletal: reports: see HPI, back pain, other (LEG PAIN) Integumentary: reports: no symptoms reported Neurological: reports: no symptoms reported Psychiatric: reports: no symptoms reported Endocrine: reports: no symptoms reported Hematologic/Lymphatic: reports: no symptoms reported Allergic/Immunologic: reports: no symptoms reported All Other Systems: Reviewed and Negative Past History - Adult - PAST MEDICAL HISTORY-ADULT Review of Records: reports: Nursing Assessment Review, Medications Reviewed Major Childhood Illnesses: reports: denies history Cardiovascular: reports: HTN Gastrointestinal: reports: GERD, liver disease (non-alcoholic cirrhosis) Genitourinary: reports: denies history Musculoskeletal: reports: chronic pain (neck) Endocrine/Immune: reports: Diabetes - PRIOR SURGERIES/PROCEDURES Surgical/Procedure History: reports: orthopedic (extremity), other (spleenectomy ) - IMMUNIZATION STATUS Childhood Immunizations: See Nurse Assessment Flu Vaccine: See Nurse Assessment - FAMILY HISTORY Family History: reviewed, not pertinent Physical Exam-Injury Related - Physical Exam-Injury Related Initial Vital Signs Reviewed: Yes General Appearance: no apparent distress, obese, obtunded Eyes: PERRL/EOMI Head, Ears, Nose, Mouth & Throat: moist mucous membranes Respiratory: chest non-tender, lungs clear, normal breath sounds, no pleuratic chest pain, no respiratory distress, no accessory muscle use Cardiovascular: regular rate, rhythm Abdominal Exam: normal bowel sounds, non tender, soft, no organomegaly, no pulsatile mass Back Exam: normal inspection, no CVA tenderness, no vertebral tenderness Extremity: normal range of motion, normal gait, normal inspection, no pedal edema, no calf tenderness, normal capillary refill, tenderness (RT BUTTOCK AND THIGH) Integumentary: normal color, warm/dry Neurologic: grossly normal, no motor/sensory deficits Psych/Mental Status: oriented x 3 Progress - PLAN OF CARE/RESULTS Progress/Plan/Lab Results: Orders Category Date Time Status Admit - [facility] Routine AdmDCTranf 11/09/16 20:03 Ordered Activity - Up Ad Edith ORDERED Care 11/09/16 20:03 Active Call Admitting on Arrival AT ADMISSION Care 11/09/16 20:03 Completed Saline Loc NOW Care 11/09/16 16:57 Active Vital Signs Order ROUTINE Care 11/09/16 20:03 Active Heart Healthy Diet Diet 11/09/16 20:03 Completed ALCOHOL BLOOD Stat Lab 11/09/16 17:28 Completed AMMONIA [CHEM] Stat Lab 11/09/16 17:28 Completed AMYLASE [CHEM] Stat Lab 11/09/16 17:28 Completed CBC WITH ELECTRONIC DIFF [HEME] Stat Lab 11/09/16 17:28 Completed COMPREHENSIVE METABOLIC PANEL [CHEM] Stat Lab 11/09/16 17:28 Completed LIPASE [CHEM] Stat Lab 11/09/16 17:[address] W/POSS RFLX CULT [URINALYSIS] Stat Lab 11/09/16 17:21 Completed URINE DRUG SCREEN PL Stat Lab 11/09/16 17:21 Completed 0.9% Sodium Chloride Inj [Ns] 1,000 ml Med 11/09/16 18:16 Discontinued IV 125 mls/hr Lactulose Med 11/09/16 18:16 Discontinued 30 ml PO NOW ONE Oxygen Device Stat Oth 11/09/16 20:04 Completed Transfer/Admit Order [TRANSFER] Routine Transfer 11/09/16 20:05 Completed DISCUSSED PT EXAM, LABS, AND PLAN OF CARE WITH DR. TREVINO WHO AGREES WITH CONSULTING HOSPITALIST FOR ADMIT. Result Diagrams: 11/10/16 07:00 11/10/16 07:00 - CONSULTS/PCP/HOSPITALIST Notification #1 *Consult/PCP/Hospitalist*: DR. GALLARDO Time Discussed: 20:00 (DISCUSSED ADMISSION FOR HEPATIC ENCEPHALOPATHY.) Consult Disposition: Admit Departure - Departure Date of Disposition Decision: 11/09/16 Time of Disposition Decision: 20:00 DIAGNOSIS: Hepatic encephalopathy Sciatica Qualifiers: Laterality: right Qualified Code(s): M54.31 - Sciatica, right side Disposition: ADMITTED INPATIENT 09 Certified Medical Emergency: Emergent Condition: Good - Critical Care Note This patient required my direct & personal management of CC.: No Attestation - Physician/ NICKOLAS Attestation Patient care was provided by Advanced Practice Provider:: Yes Advanced Practice Provider:: Harriett Mcgill Advanced Practice Provider documentation review:: The Mid-level provider documentation, treatment plan and medical decision making was reviewed by the physician who agrees with all treatment and medical decision making by the P.
[2016-11-09] MEDS ORDERED: HUMULIN 70/30 (PARKWAY) SUBQ SCH (21:45)
[2016-11-09] MEDS: XIFAXAN PO SCH (22:02)
[2016-11-10] MEDS ORDERED: PROTONIX PO SCH (07:00)
[2016-11-10] MEDS ORDERED: HUMULIN 70/30 (PARKWAY) SUBQ SCH (07:00)
[2016-11-10 07:15] LABS: HEMOGLOBIN 11.5 g/dL (14.0-18.0); MCH 31.7 PG (27-31); MCHC 34.8 g/dL (33-37); MCV 90.9 FL (81-99); MPV 10.4 FL (7.4-10.4); RBC 3.63 XMIL (4.7-6.1)
[2016-11-10 07:42] LABS: AGAP 10; ALBUMIN 2.8 g/dL (3.5-5.0); ALKALINE PHOSPHATASE 109 U/L (32-122); BUN 13 mg/dL (8-22); CALCIUM 8.3 mg/dL (8.8-10.2); CHLORIDE 101 mmol/L (98-107); COSMO 274; GOT 200 U/L (10-34); GPT 53 U/L (10-44); POTASSIUM 3.4 mmol/L (3.5-5.1); SODIUM 134 mmol/L (136-145); TCO2 23 mmol/L (25-35); TOTAL PROTEIN 5.9 g/dL (6.3-8.3)
[2016-11-10] MEDS ORDERED: GLUCOPHAGE PO SCH (08:00)
[2016-11-10 08:01] VITALS: BP 125/59
[2016-11-10] MEDS: XIFAXAN PO SCH (08:19)
[2016-11-10] MEDS ORDERED: LACTULOSE PO SCH (09:00)
[2016-11-10] MEDS ORDERED: NEURONTIN PO SCH (21:00)
[2016-11-10] MEDS ORDERED: ZOCOR PO SCH (21:00)
--- NOTE | 2016-11-11 07:57 | HISTORY AND PHYSICAL ---
CHIEF COMPLAINT: Right hip pain. HISTORY OF PRESENT ILLNESS: This is a 61-year-old male with a history of diabetes type 2, nonalcoholic steatohepatitis with cirrhosis, who presented to the emergency room complaining of right hip pain that has been present for about 24 hours. He denied any injury. He states that the pain is an achy type pain that is in his right hip and buttocks and with sitting and bending it does extent into his right thigh. He denies prior pain or prior injury, although he does have a history of peripheral neuropathy. He did state that he was sitting in court for quite some time today and the pain seemed to increase while sitting. As he has walked around the pain has decreased down to 1 to 2/10. His gait is noted to be steady with 5/5 strength bilateral. He does have a history of history of nonalcoholic steatohepatitis with cirrhosis. He has had recurring bouts of hepatic encephalopathy when ammonia level is elevated. He stated that today in court the plan coordinator believed he was under the influence of alcohol. The patient is asking to have a blood alcohol drawn, which revealed none detected. He did have a positive urine drug screen for opiates, oxycodone, and tricyclics, and an ammonia level of 137. He was given IV hydration as well as lactulose in the emergency room. He is being admitted for further evaluation and treatment. PAST MEDICAL HISTORY: 1. Sleep apnea. 2. Diabetes mellitus type 2. 3. Dyslipidemia. 4. Nonalcoholic steatohepatitis with cirrhosis with recurring hepatic encephalopathy due to increased ammonia levels. 5. 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 PAST SURGICAL HISTORY: Splenectomy and C5-C6 fusion. SOCIAL HISTORY: He denies alcohol, tobacco, or illicit drug use. He is a , retired [employer]. ALLERGIES: No known drug allergies. HOME MEDICATIONS: A list will be obtained. REVIEW OF SYSTEMS: A 14 point review of systems is discussed with the patient with pertinent positives being right hip pain, chronic neck pain. He denied any chest pain, palpitations, dizziness, syncope, shortness of breath, cough, PND, orthopnea, nausea, vomiting, diarrhea, constipation, black or bloody vomitus, black or bloody stools, hematuria, dysuria, frequency, urgency. PHYSICAL EXAMINATION: GENERAL: This is a 61-year-old male who is sitting up in the bed, in no distress. VITAL SIGNS: Blood pressure is 125/59, with a heart rate of 72, respirations are 18, temperature is 97.5 degrees oral, with O2 saturations of 98 to 100% on room air. HEENT: Head is normocephalic, atraumatic. Pupils equal, round, react to light. EOMs are intact. Sclerae anicteric. Mucous membranes are moist. NECK: Supple with trachea midline. CARDIOVASCULAR: Regular rate and rhythm. S1 and S2 appreciated. No rubs, murmurs, or gallops. PULMONARY: Breath sounds are clear with no increased work of breathing noted. Chest does rise and fall symmetrically with respiration. GASTROINTESTINAL: Abdomen is soft, nontender, nondistended with bowel sounds in all 4 quadrants. MUSCULOSKELETAL: Good range of motion to joints. EXTREMITIES: No clubbing, cyanosis, or edema. Calves are nontender. Pulses are palpable x4. SKIN: Warm and dry. DIAGNOSTICS: WBC is 11, hemoglobin 12.3, hematocrit 34.8, and platelets of 232,000. Sodium 131, potassium 4.3, BUN 17, creatinine 1.1, with a glucose of 122. Total bilirubin is 1.4, with AST 191, ALT 52, alkaline phosphatase 133, ammonia 137, lipase is 11. Urinalysis is essentially negative. Blood alcohol is nondetected. ASSESSMENT: This is a 61-year-old male who is sitting up in the bed, in no distress. 1. Hepatic encephalopathy secondary to elevated ammonia. 2. Hyponatremia. 3. Diabetes type 2. 4. Chronic neck pain. 5. Leukocytosis. PLAN: He was admitted to the medical-surgical floor. His home medications were continued. We will repeat CMP and CBC, as well as ammonia level in the morning. Of note, the patient denies any right hip pain on evaluation. Further treatments pending hospital course. Dictated by SHARON Hirsch for Subhash Tate MD cc: SHARON Hirsch MD
--- NOTE | 2016-11-11 14:39 | DISCHARGE SUMMARY ---
ADMISSION DATE: 11/09/2016 DISCHARGE DATE: 11/10/2016 DIAGNOSES: 1. Hepatic encephalopathy secondary to elevated ammonia level, resolved. 2. Hyponatremia, resolved. 3. Diabetes mellitus, type 2. 4. Leukocytosis, resolved. 5. Non-alcoholic steatohepatitis with cirrhosis. 6. Elevated LFTs which is chronic. 7. Right hip pain, resolved. HOSPITAL COURSE: Mr. Rendon presented to the emergency room complaining of right hip pain that seemed to come on after setting for quite some time. The pain was almost resolved on arrival to the emergency room and it did resolve through the night. He had been at a hearing for disability, and he stated that because of slurred speech and disorientation, the tribal judge felt that he was drunk. He is asking to have a blood alcohol to prove that he is not drunk which was none detected. He was noted to have an ammonia level of 137 on admission which certainly would explain his slurred speech and disorientation. After taking lactulose, his ammonia level did decrease to 82. On review of the patient's old records, ammonia levels have ranged from the 80s to 170s through hospitalizations. We did continue all of his home medications. Thankfully, the patient's slurred speech and disorientation resolved. He is back to his normal self, and he is ready for discharge. PHYSICAL EXAMINATION: Cardiovascular: Regular rate and rhythm. S1 and S2 appreciated. Pulmonary: Breath sounds are clear with no increased work of breathing noted. Gastrointestinal: Abdomen is soft, nontender, nondistended with bowel sounds in all 4 quadrants. Neurologic: He is alert and oriented x3 with cranial nerves 2-12 grossly intact. DISCHARGE MEDICATIONS: 1. Eszopiclone 2 mg daily. 2. Zoloft 50 at bedtime. 3. Ferrous sulfate 325 t.i.d. 4. Gabapentin 300 at bedtime. 5. Humulin insulin 70/30, 50 units subcutaneous q.a.m. 6. Humulin insulin 70/30, 30 units subcutaneous at bedtime. 7. 550 p.o. b.i.d. 8. Protonix 40 mg daily. 9. Metformin a 1000 mg b.i.d. 10. Lactulose 45 mL 4 times a day. 11. Simvastatin at 10 mg at bedtime. DISCHARGE VITAL SIGNS: Blood pressure is 125/59 with a heart rate of 72. Respirations are 18. Temperature is 97.5 oral with room air saturation of 100. DISCHARGE ACTIVITY: As tolerated. FOLLOWUP: He needs to follow up with his primary care physician in the next 1-2 weeks as well as the [facility] as scheduled. He is being discharged home in stable condition with family members. This is a greater than 30 minute discharge. Dictated by SHARON Hirsch for Subhash Tate MD cc: SHARON Hirsch MD
== END 2016-11-10 12:12 | disposition home or self-care (01) ==
LOC: P.ED 15:46 → P.MEDSURG 20:22 → INTOOBSV 20:22
PROVIDERS: ATTEND Family Medicine

== ENCOUNTER 2017-01-06 10:55 | Inpatient (IN) ==
--- NOTE | 2017-01-06 11:21 | EKG Report ---
Test Performed on : 01/06/2017 10:49:44 AM Test Reason : Suspected Overdose Blood Pressure : / mmHG Vent. Rate : 066 BPM Atrial Rate : 047 BPM P-R Int : 000 ms QRS Dur : 080 ms QT Int : 448 ms P-R-T Axes : 000 010 018 degrees QTc Int : 469 ms Accelerated Junctional rhythm. Nonspecific ST abnormality Abnormal ECG When compared with ECG of 24-NOV-2016 18:43, Junctional rhythm. has replaced Sinus rhythm. Unconfirmed Result
[2017-01-06 11:27] LABS: ALLEN TEST YES; BE -3.7 mmoll (-3.0-3.0); BLOOD TYPE ARTERIAL; DRAW SITE R RADIAL; MODALITY CANNULA; O2(CT) 18.1 mL/dL (15.0-23.0); PCO2(98.6) 45 mmHg (35-45); PO2(98.6) 67 mmHg (60-100); SAMPLE BLOOD; SAO2 95.9 % (95.0-100.0); THB 13.8 g/dL (11.5-17.4); pH(98.6) 7.31 (7.35-7.45)
[2017-01-06] MEDS ORDERED: NS 1,000 ML IV ONE ×2 (11:34→12:47)
--- NOTE | 2017-01-06 11:52 | Diag Imaging Result Doc PS360 ---
CHEST-PORTABLE - 01/06/2017 INDICATION: ams TECHNIQUE: COMPARISON: 11/30/2016 FINDINGS: Lung volumes are improved. There is decrease in the trace atelectasis in the costophrenic angles bilaterally. No new or focal infiltrates. No pneumothorax or pleural effusion. Heart size and pulmonary vascularity are top normal. IMPRESSION: No specific acute disease. Electronically signed by Sergo Thibodeaux 01/06/2017 11:50 AM
[2017-01-06 11:58] LABS: INR 1.25; PROTIME 13.3 Seconds (9.2-11.7); PTT 33.7 Seconds (22.0-36.0)
[2017-01-06 12:03] LABS: URINE CULTURE NEEDED? NO; URINE MICRO REVIEW NEEDED? NO; URINE SOURCE CATH
[2017-01-06 12:09] LABS: BILIRUBIN URINE NEGATIVE (NEGATIVE); BLOOD URINE NEGATIVE (NEGATIVE); COLOR YELLOW; GLUCOSE URINE >1000 mg/dL (NEGATIVE); LEUKOCYTES URINE NEGATIVE (NEGATIVE); NITRITE URINE NEGATIVE (NEGATIVE); PROTEIN URINE TRACE mg/dL (NEGATIVE); SP GRAVITY URINE 1.021; TURBIDITY URINE CLEAR (CLEAR); UR EPITHELIAL CELLS <10 /HPF (<10); URINE BACTERIA NEGATIVE /HPF; URINE RBC <10 /HPF (<10); URINE WBC <10 /HPF (<10); UROBILINOGEN URINE NORMAL (NORMAL)
[2017-01-06 12:10] LABS: MAGNESIUM 1.9 mg/dL (1.5-2.7)
[2017-01-06 12:19] LABS: UR AMPHETAMINES QUAL NONE DETECTED (NONE DETECT); UR BARBITUATES QUAL NONE DETECTED (NONE DETECT); UR BENZODIAZEPIN QUAL NONE DETECTED (NONE DETECT); UR CANNABINOIDS QUAL NONE DETECTED (NONE DETECT); UR COCAINE QUAL NONE DETECTED (NONE DETECT); UR METHADONE QUAL NONE DETECTED (NONE DETECT); UR OPIATES QUAL PRESUMPTIVE POSITIVE (NONE DETECT); UR OXYCODONE QUAL PRESUMPTIVE POSITIVE (NONE DETECT); UR PCP QUAL NONE DETECTED (NONE DETECT)
--- NOTE | 2017-01-06 12:24 | Diag Imaging Result Doc PS360 ---
CT HEAD W/O CONTRAST - 01/06/2017 INDICATION: ams TECHNIQUE: A CT dose reduction protocol was used. 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 No intracranial mass or hemorrhage. The skull is intact. There is sinusitis of the left maxillary sinus. IMPRESSION: Sinusitis. Otherwise no acute disease or change from prior. Electronically signed by Sergo Thibodeaux 01/06/2017 12:21 PM
[2017-01-06 12:43] LABS: CK INDEX 2.9 (0.0-2.5); CK-MB 7.3 ng/mL (0.0-5.0)
[2017-01-06] MEDS ORDERED: NARCAN IV ONE (12:47)
[2017-01-06 13:51] LABS: BASO% 0.6 % (0.0-0.8); EOS# 0.97 X1000 (0.0-0.7); EOS% 7.1 % (0.0-10.0); HEMATOCRIT 35.9 % (42.0-52.0); HEMOGLOBIN 12.8 g/dL (14.0-18.0); IMM GRAN# 0.03 X1000 (0.0-0.04); IMM GRAN% 0.2 % (0.0-0.5); LYMPH# 3.65 X1000 (1.2-3.4); LYMPH% 26.7 % (20.5-51.1); MANUAL DIFF NEEDED? NO; MCH 31.9 PG (27-31); MCHC 35.7 g/dL (33-37); MCV 89.5 FL (81-99); MONO# 2.86 X1000 (0.11-0.59); MONO% 20.9 % (1.7-9.3); MPV 11.1 FL (7.4-10.4); NEUT% 44.5 % (42.2-75.2); PLT 298 X1000 (130-400); RBC 4.01 XMIL (4.7-6.1)
[2017-01-06 14:04] LABS: ACETAMINOPHEN < 1.2 ug/mL (10-30); AGAP 17; ALBUMIN 3.4 g/dL (3.5-5.0); ALKALINE PHOSPHATASE 167 U/L (32-122); BUN 14 mg/dL (8-22); CALCIUM 9.3 mg/dL (8.8-10.2); CHLORIDE 89 mmol/L (98-107); COSMO 257; GOT 58 U/L (10-34); GPT 33 U/L (10-44); POTASSIUM 4.1 mmol/L (3.5-5.1); SODIUM 126 mmol/L (136-145); TCO2 20 mmol/L (25-35); TOTAL BILIRUBIN 1.14 mg/dL (0.20-1.00); TOTAL PROTEIN 6.5 g/dL (6.3-8.3)
[2017-01-06 16:19] LABS: UR CREAT RANDOM 172.7 mg/dL (14-26)
--- NOTE | 2017-01-06 16:20 | PROVIDER DOCUMENTATION ---
This chart was entered by Jhonny Klein Scribe, acting as scribe for Hector Wilkins MD. HPI-Neurological Disorder - General Chief Complaint: Altered Mental Status Stated Complaint: unresponsive Time Seen by Provider: 01/06/17 10:59 Source: EMS Unable to obtain history due to:: altered Allergies/Adverse Reactions: Patient Allergies Allergy/AdvReac Type Severity Reaction Status Date / Time No Known Allergies Allergy Verified 01/06/17 12:00 Home Medications: Home Medication List Medication Instructions Recorded Confirmed Last Taken Type Insulin Humulin 70/30 [Humulin 30 unit SUBQ QHS 02/16/15 01/06/17 11/24/16 History 70/30] Insulin Humulin 70/30 [Humulin 50 unit SUBQ [facility] 02/16/15 01/06/17 11/24/16 History 70/30] Pantoprazole [Protonix] 40 mg PO DAILY@0700 02/16/15 01/06/17 11/24/16 History Sertraline [Zoloft] 50 mg PO HS 02/16/15 01/06/17 11/24/16 History Ferrous Sulfate 325 mg PO TID 01/11/16 01/06/17 11/24/16 History Gabapentin 300 mg PO QHS 01/11/16 01/06/17 11/24/16 History Rifaximin [Xifaxan] 550 mg PO BID #60 tablet 01/13/16 01/06/17 11/24/16 Rx Cyclobenzaprine [Flexeril] 10 mg PO BID 11/25/16 01/06/17 Unknown History Ergocalciferol (Vitamin D2) 50,000 unit PO Q7D #10 capsule 12/02/16 01/06/17 Unknown Rx [Vitamin D] Zinc Sulfate 220 mg PO DAILY #60 capsule 12/02/16 01/06/17 Unknown Rx Atorvastatin Calcium [Lipitor] 40 mg PO DAILY 01/06/17 01/06/17 Unknown History Furosemide [Lasix] 20 mg PO DAILY 01/06/17 01/06/17 Unknown History Losartan [Cozaar] 25 mg PO DAILY 01/06/17 01/06/17 Unknown History Nadolol [Corgard] 10 mg PO DAILY 01/06/17 01/06/17 Unknown History Spironolactone [Aldactone] 100 mg PO DAILY 01/06/17 01/06/17 Unknown History Tamsulosin HCl 1 tab PO QHS 01/06/17 01/06/17 Unknown History - History of Present Illness-Neuro Nature of Presenting Problem: patient is a 61 yo M that presents to the ER via EMS after being found unresponsive at home by 's home health nurse. He an empty bottle of Phenergan at his bedside. Patient was found to have slow to no respirations by EMS. he was give O2, 4mg of zofran, and 2mg of narcan and began to have some response. Severity: reports: moderate, severe Onset/Duration: reports: abrupt, this morning Timing: reports: still present Context: reports: found unresponsive by bystander (home health) Character of Altered Mental Status: reports: unresponsive Cognitive Baseline: alert, oriented x3 Gait Baseline: walks without assistance Associated Symptoms: reports: short of breath. denies: fever/chills, vomiting Similar Symptoms Previously?: No Recently seen or treated by another doctor?: No Review of Systems - Adult - REVIEW OF SYSTEMS - ADULT ROS:: unobtainable per condition Constitutional: reports: see HPI Eyes: reports: see HPI Ears, Nose, Mouth & Throat: reports: see HPI Cardiovascular: reports: see HPI Respiratory: reports: see HPI Gastrointestinal: reports: see HPI Neurological: reports: see HPI Psychiatric: reports: see HPI All Other Systems: Reviewed and Negative Past History - Adult - PAST MEDICAL HISTORY-ADULT Review of Records: reports: Old Records Reviewed, Nursing Assessment Review, Medications Reviewed Cardiovascular: reports: HTN Gastrointestinal: reports: GERD, liver disease (non-alcoholic cirrhosis) Musculoskeletal: reports: chronic pain (neck) Neurological: reports: CVA Endocrine/Immune: reports: Diabetes Diabetes controlled by:: Insulin Dependent - PRIOR SURGERIES/PROCEDURES Surgical/Procedure History: reports: colonoscopy, orthopedic (extremity), other (spleenectomy) - IMMUNIZATION STATUS Childhood Immunizations: See Nurse Assessment Flu Vaccine: See Nurse Assessment - FAMILY HISTORY Family History: reviewed, not pertinent - SOCIAL HISTORY Smoking: quit greater than 1 year, cigarettes Living Situation: family Physical Exam- Neurological - Physical Exam-Neuro Exam Limited by: limit to condition General Appearance: moderate distress, lethargic, slow to respond Eye Exam: bilateral eye: PERRL (4mm) HENMT: normocephalic/atraumatic, moist mucous membranes, normal ENT inspection Neck: full range of motion, normal inspection Respiratory: respiratory distress (mild to moderate), decreased rate (shallow resp). negative: rhonchi, stridor, wheezing Cardiovascular: regular rate, rhythm, no edema Abdominal Exam: normal bowel sounds, no pulsatile mass, distended, hepatomegaly Extremity: no pedal edema, normal capillary refill, pelvis stable Neurologic: negative: facial droop, focal weakness, motor weakness Integumentary: normal color, warm/dry Psych/Mental Status: other (slow to responds, a/o x 1,). negative: paranoid - Glascow Coma Scale Best Eye Response: (2) open to pain Best Verbal Response: (3) inappropriate words Best Motor Response: (5) localizes to pain Total Glascow Score: 10 Progress - PLAN OF CARE/RESULTS Progress/Plan/Lab Results: Vital Signs - 8 hr 01/06/17 10:54 01/06/17 12:24 01/06/17 12:43 Temperature 97.7 F Pulse Rate 65 71 74 Respiratory Rate 25 H 14 13 Blood Pressure 93/60 90/48 85/53 O2 Sat by Pulse Oximetry 90 L 94 L 93 L 01/06/17 13:00 01/06/17 13:17 01/06/17 14:43 Temperature Pulse Rate 75 76 68 Respiratory Rate 17 20 18 Blood Pressure 158/83 94/63 123/82 O2 Sat by Pulse Oximetry 94 L 99 93 L 01/06/17 15:03 Temperature Pulse Rate 76 Respiratory Rate 14 Blood Pressure 82/54 O2 Sat by Pulse Oximetry 93 L Laboratory Results - last 24 hr 01/06/17 01/06/17 01/06/17 11:05 11:09 11:09 WBC RBC Hgb Hct MCV MCH MCHC RDW Std Deviation Plt Count MPV Immature Gran % (Auto) Neut % (Auto) Lymph % (Auto) Tripp % (Auto) Eos % (Auto) Baso % (Auto) Immature Gran # (Auto) Neut # (Auto) Lymph # (Auto) Tripp # (Auto) Eos # (Auto) Baso # (Auto) PT INR PTT (Actin FS) Specimen Type Sample Site pH pCO2 pO2 HCO3 Base Excess Oxyhemoglobin ABG O2 Sat (Calculated) ABG O2 Saturation ABG Carboxyhemoglobin ABG Methemoglobin José Manuel Test A-a O2 Difference Total Hemoglobin Lactate Liter Flow Blood Gas Modality FiO2 % Sodium Potassium Chloride Carbon Dioxide Anion Gap BUN Creatinine Estimated GFR/1.73 m2 BUN/Creatinine Ratio Glucose POC Glucose 152 H Calculated Osmolality Calcium Magnesium 1.9 Total Bilirubin AST ALT Alkaline Phosphatase Ammonia 55 Creatine Kinase 248 H Creatine Kinase Index 2.9 H CK-MB (CK-2) 7.30 H Troponin T Foj-F-Igrlsogkstj Pept Total Protein Albumin Globulin Albumin/Globulin Ratio Plasma Lactate Urine Source Urine Color Urine Turbidity Urine pH Ur Specific Wilson Urine Protein Ur Glucose (Stick) Ur Ketones (Stick) Urine Blood Urine Nitrite Urine Bilirubin Urobilinogen Dipstick Urine Leukocytes Urine WBC (Auto) Urine RBC (Auto) U Epithel Cells (Auto) Urine Bacteria (Auto) Urine Osmolality Ur Random Creatinine Ur Random Sodium Ur Random Potassium Salicylates Urine Opiates Screen Ur Oxycodone Screen Ur Methadone, Qual Acetaminophen Ur Barbiturates Screen Ur Phencyclidine Scrn Ur Amphetamines Screen U Benzodiazepines Scrn Urine Cocaine Screen U Cannabinoids Screen Plasma/Serum Ethyl Alc 01/06/17 01/06/17 01/06/17 11:09 11:09 11:09 WBC RBC Hgb Hct MCV MCH MCHC RDW Std Deviation Plt Count MPV Immature Gran % (Auto) Neut % (Auto) Lymph % (Auto) Tripp % (Auto) Eos % (Auto) Baso % (Auto) Immature Gran # (Auto) Neut # (Auto) Lymph # (Auto) Tripp # (Auto) Eos # (Auto) Baso # (Auto) PT 13.3 H INR 1.25 PTT (Actin FS) 33.7 Specimen Type Sample Site pH pCO2 pO2 HCO3 Base Excess Oxyhemoglobin ABG O2 Sat (Calculated) ABG O2 Saturation ABG Carboxyhemoglobin ABG Methemoglobin José Manuel Test A-a O2 Difference Total Hemoglobin Lactate Liter Flow Blood Gas Modality FiO2 % Sodium Potassium Chloride Carbon Dioxide Anion Gap BUN Creatinine Estimated GFR/1.73 m2 BUN/Creatinine Ratio Glucose POC Glucose Calculated Osmolality Calcium Magnesium Total Bilirubin AST ALT Alkaline Phosphatase Ammonia Creatine Kinase Creatine Kinase Index CK-MB (CK-2) Troponin T Sin-W-Gzmnkrbscmw Pept 47 Total Protein Albumin Globulin Albumin/Globulin Ratio Plasma Lactate 2.3 H Urine Source Urine Color Urine Turbidity Urine pH Ur Specific Wilson Urine Protein Ur Glucose (Stick) Ur Ketones (Stick) Urine Blood Urine Nitrite Urine Bilirubin Urobilinogen Dipstick Urine Leukocytes Urine WBC (Auto) Urine RBC (Auto) U Epithel Cells (Auto) Urine Bacteria (Auto) Urine Osmolality Ur Random Creatinine Ur Random Sodium Ur Random Potassium Salicylates Urine Opiates Screen Ur Oxycodone Screen Ur Methadone, Qual Acetaminophen Ur Barbiturates Screen Ur Phencyclidine Scrn Ur Amphetamines Screen U Benzodiazepines Scrn Urine Cocaine Screen U Cannabinoids Screen Plasma/Serum Ethyl Alc 01/06/17 01/06/17 01/06/17 11:09 11:09 11:09 WBC RBC Hgb Hct MCV MCH MCHC RDW Std Deviation Plt Count MPV Immature Gran % (Auto) Neut % (Auto) Lymph % (Auto) Tripp % (Auto) Eos % (Auto) Baso % (Auto) Immature Gran # (Auto) Neut # (Auto) Lymph # (Auto) Tripp # (Auto) Eos # (Auto) Baso # (Auto) PT INR PTT (Actin FS) Specimen Type Sample Site pH pCO2 pO2 HCO3 Base Excess Oxyhemoglobin ABG O2 Sat (Calculated) ABG O2 Saturation ABG Carboxyhemoglobin ABG Methemoglobin José Manuel Test A-a O2 Difference Total Hemoglobin Lactate Liter Flow Blood Gas Modality FiO2 % Sodium 126 L Potassium 4.1 Chloride 89 L Carbon Dioxide 20 L Anion Gap 17 BUN 14 Creatinine 1.9 H Estimated GFR/1.73 m2 36 BUN/Creatinine Ratio 7 Glucose 153 H POC Glucose Calculated Osmolality 257 Calcium 9.3 Magnesium Total Bilirubin 1.14 H AST 58 H ALT 33 Alkaline Phosphatase 167 H Ammonia Creatine Kinase Creatine Kinase Index CK-MB (CK-2) Troponin T < 0.010 Oed-X-Xomqmmjxriv Pept Total Protein 6.5 Albumin 3.4 L Globulin 3.1 Albumin/Globulin Ratio 1.1 Plasma Lactate Urine Source Urine Color Urine Turbidity Urine pH Ur Specific Wilson Urine Protein Ur Glucose (Stick) Ur Ketones (Stick) Urine Blood Urine Nitrite Urine Bilirubin Urobilinogen Dipstick Urine Leukocytes Urine WBC (Auto) Urine RBC (Auto) U Epithel Cells (Auto) Urine Bacteria (Auto) Urine Osmolality Ur Random Creatinine Ur Random Sodium Ur Random Potassium Salicylates < 3.00 L Urine Opiates Screen Ur Oxycodone Screen Ur Methadone, Qual Acetaminophen < 1.2 L Ur Barbiturates Screen Ur Phencyclidine Scrn Ur Amphetamines Screen U Benzodiazepines Scrn Urine Cocaine Screen U Cannabinoids Screen Plasma/Serum Ethyl Alc 09/20/17 09/20/17 09/20/17 11:09 11:17 11:45 WBC 13.66 H RBC 4.01 L Hgb 12.8 L Hct 35.9 L MCV 89.5 MCH 31.9 H MCHC 35.7 RDW Std Deviation 14.4 Plt Count 298 MPV 11.1 H Immature Gran % (Auto) 0.2 Neut % (Auto) 44.5 Lymph % (Auto) 26.7 Tripp % (Auto) 20.9 H Eos % (Auto) 7.1 Baso % (Auto) 0.6 Immature Gran # (Auto) 0.03 Neut # (Auto) 6.07 Lymph # (Auto) 3.65 H Tripp # (Auto) 2.86 H Eos # (Auto) 0.97 H Baso # (Auto) 0.08 PT INR PTT (Actin FS) Specimen Type ARTERIAL Sample Site R RADIAL pH 7.31 L pCO2 45 pO2 67 HCO3 21.9 Base Excess -3.7 L Oxyhemoglobin 93.1 L ABG O2 Sat (Calculated) 18.1 ABG O2 Saturation 95.9 ABG Carboxyhemoglobin 1.90 ABG Methemoglobin 1.0 José Manuel Test YES A-a O2 Difference 76.0 Total Hemoglobin 13.8 Lactate 2.50 H Liter Flow 2.0 Blood Gas Modality CANNULA FiO2 % 28.0 Sodium Potassium Chloride Carbon Dioxide Anion Gap BUN Creatinine Estimated GFR/1.73 m2 BUN/Creatinine Ratio Glucose POC Glucose Calculated Osmolality Calcium Magnesium Total Bilirubin AST ALT Alkaline Phosphatase Ammonia Creatine Kinase Creatine Kinase Index CK-MB (CK-2) Troponin T Mvp-Q-Xhnefrpymty Pept Total Protein Albumin Globulin Albumin/Globulin Ratio Plasma Lactate Urine Source Urine Color Urine Turbidity Urine pH Ur Specific Wilson Urine Protein Ur Glucose (Stick) Ur Ketones (Stick) Urine Blood Urine Nitrite Urine Bilirubin Urobilinogen Dipstick Urine Leukocytes Urine WBC (Auto) Urine RBC (Auto) U Epithel Cells (Auto) Urine Bacteria (Auto) Urine Osmolality 461 Ur Random Creatinine Ur Random Sodium Ur Random Potassium Salicylates Urine Opiates Screen Ur Oxycodone Screen Ur Methadone, Qual Acetaminophen Ur Barbiturates Screen Ur Phencyclidine Scrn Ur Amphetamines Screen U Benzodiazepines Scrn Urine Cocaine Screen U Cannabinoids Screen Plasma/Serum Ethyl Alc 01/06/17 01/06/17 01/06/17 11:45 11:48 11:50 WBC RBC Hgb Hct MCV MCH MCHC RDW Std Deviation Plt Count MPV Immature Gran % (Auto) Neut % (Auto) Lymph % (Auto) Tripp % (Auto) Eos % (Auto) Baso % (Auto) Immature Gran # (Auto) Neut # (Auto) Lymph # (Auto) Tripp # (Auto) Eos # (Auto) Baso # (Auto) PT INR PTT (Actin FS) Specimen Type Sample Site pH pCO2 pO2 HCO3 Base Excess Oxyhemoglobin ABG O2 Sat (Calculated) ABG O2 Saturation ABG Carboxyhemoglobin ABG Methemoglobin José Manuel Test A-a O2 Difference Total Hemoglobin Lactate Liter Flow Blood Gas Modality FiO2 % Sodium Potassium Chloride Carbon Dioxide Anion Gap BUN Creatinine Estimated GFR/1.73 m2 BUN/Creatinine Ratio Glucose POC Glucose Calculated Osmolality Calcium Magnesium Total Bilirubin AST ALT Alkaline Phosphatase Ammonia Creatine Kinase Creatine Kinase Index CK-MB (CK-2) Troponin T Rki-N-Kjehdmxpfyk Pept Total Protein Albumin Globulin Albumin/Globulin Ratio Plasma Lactate Urine Source CATH Urine Color YELLOW Urine Turbidity CLEAR Urine pH 5.0 Ur Specific Wilson 1.021 Urine Protein TRACE A Ur Glucose (Stick) >1000 A Ur Ketones (Stick) TRACE A Urine Blood NEGATIVE Urine Nitrite NEGATIVE Urine Bilirubin NEGATIVE Urobilinogen Dipstick NORMAL Urine Leukocytes NEGATIVE Urine WBC (Auto) <10 Urine RBC (Auto) <10 U Epithel Cells (Auto) <10 Urine Bacteria (Auto) NEGATIVE Urine Osmolality Ur Random Creatinine 172.7 H Ur Random Sodium 18 Ur Random Potassium 42.4 Salicylates Urine Opiates Screen PRESUMPTIVE POSITIVE A Ur Oxycodone Screen PRESUMPTIVE POSITIVE A Ur Methadone, Qual NONE DETECTED Acetaminophen Ur Barbiturates Screen NONE DETECTED Ur Phencyclidine Scrn NONE DETECTED Ur Amphetamines Screen NONE DETECTED U Benzodiazepines Scrn NONE DETECTED Urine Cocaine Screen NONE DETECTED U Cannabinoids Screen NONE DETECTED Plasma/Serum Ethyl Alc 01/06/17 13:41 WBC RBC Hgb Hct MCV MCH MCHC RDW Std Deviation Plt Count MPV Immature Gran % (Auto) Neut % (Auto) Lymph % (Auto) Tripp % (Auto) Eos % (Auto) Baso % (Auto) Immature Gran # (Auto) Neut # (Auto) Lymph # (Auto) Tripp # (Auto) Eos # (Auto) Baso # (Auto) PT INR PTT (Actin FS) Specimen Type Sample Site pH pCO2 pO2 HCO3 Base Excess Oxyhemoglobin ABG O2 Sat (Calculated) ABG O2 Saturation ABG Carboxyhemoglobin ABG Methemoglobin José Manuel Test A-a O2 Difference Total Hemoglobin Lactate Liter Flow Blood Gas Modality FiO2 % Sodium Potassium Chloride Carbon Dioxide Anion Gap BUN Creatinine Estimated GFR/1.73 m2 BUN/Creatinine Ratio Glucose POC Glucose Calculated Osmolality Calcium Magnesium Total Bilirubin AST ALT Alkaline Phosphatase Ammonia Creatine Kinase Creatine Kinase Index CK-MB (CK-2) Troponin T Ton-P-Idbxeozwkpp Pept Total Protein Albumin Globulin Albumin/Globulin Ratio Plasma Lactate 2.0 Urine Source Urine Color Urine Turbidity Urine pH Ur Specific Wilson Urine Protein Ur Glucose (Stick) Ur Ketones (Stick) Urine Blood Urine Nitrite Urine Bilirubin Urobilinogen Dipstick Urine Leukocytes Urine WBC (Auto) Urine RBC (Auto) U Epithel Cells (Auto) Urine Bacteria (Auto) Urine Osmolality Ur Random Creatinine Ur Random Sodium Ur Random Potassium Salicylates Urine Opiates Screen Ur Oxycodone Screen Ur Methadone, Qual Acetaminophen Ur Barbiturates Screen Ur Phencyclidine Scrn Ur Amphetamines Screen U Benzodiazepines Scrn Urine Cocaine Screen U Cannabinoids Screen Plasma/Serum Ethyl Alc Orders Category Date Time Status Cardiac Monitoring DIRECTED Care 01/06/17 11:00 Active Cardiac Monitoring DIRECTED Care 01/06/17 11:01 Active Finger Stick Blood Sugar (ED) DIRECTED Care 01/06/17 11:01 Active Oxygen Therapy- ED Nursing DIRECTED Care 01/06/17 11:00 Active Saline Loc DIRECTED Care 01/06/17 11:01 Active Saline Loc NOW Care 01/06/17 11:00 Active CHEST-PORTABLE [RAD] Stat Exams 01/06/17 11:[address] HEAD W/O CONTRAST [CT] Stat Exams 01/06/17 11:33 Completed US ABDOMEN-COMPLETE [US] Stat Exams 01/06/17 15:49 Ordered ABG [RESP] Routine Lab 01/06/17 11:17 Completed ACETAMINOPHEN [TDM] Stat Lab 01/06/17 11:09 Completed ALCOHOL BLOOD Stat Lab 01/06/17 11:09 Completed AMMONIA [CHEM] Stat Lab 01/06/17 11:09 Completed BLOOD CULTURE [BLDCUL] Stat Lab 01/06/17 11:50 Received CBC WITH ELECTRONIC DIFF [HEME] Stat Lab 01/06/17 11:09 Completed CK PROFILE [SP CHEM] Stat Lab 01/06/17 11:09 Completed COMPREHENSIVE METABOLIC PANEL [CHEM] Stat Lab 01/06/17 11:09 Completed FREE T4 Routine Lab 01/06/17 11:09 Received LACTATE, PLASMA [CHEM] Stat Lab 01/06/17 11:09 Completed LACTATE, PLASMA [CHEM] Stat Lab 01/06/17 13:41 Completed MAGNESIUM [CHEM] Stat Lab 01/06/17 11:09 Completed PRO B-NATRIURETIC PEPTIDE Stat Lab 01/06/17 11:09 Completed PROTIME WITH INR [COAG] Stat Lab 01/06/17 11:09 Completed PTT [COAG] Stat Lab 01/06/17 11:09 Completed SALICYLATES [TDM] Stat Lab 01/06/17 11:09 Completed TROPONIN T Stat Lab 01/06/17 11:09 Completed TSH Routine Lab 01/07/17 06:00 Ordered UA NIMS W/REFLEX CULT [URINALYSIS] Stat Lab 01/06/17 11:48 Completed UR CHLORIDE [URCHEM] Routine Lab 01/06/17 11:45 Received UR CREAT RANDOM [URCHEM] Timed Lab 01/06/17 11:45 Completed UR OSMOLALITY [CHEM] Timed Lab 01/06/17 11:45 Completed UR POTASSIUM [URCHEM] Routine Lab 01/06/17 11:45 Completed UR SODIUM [URCHEM] Timed Lab 01/06/17 11:45 Completed URINE DRUG SCREEN Stat Lab 01/06/17 11:50 Completed VITAMIN B12 Timed Lab 01/06/17 11:09 Received 0.9% Sodium Chloride Inj [Ns] 1,000 ml Med 01/06/17 11:34 Discontinued IV 999 mls/hr 0.9% Sodium Chloride Inj [Ns] 1,000 ml Med 01/06/17 12:47 Discontinued IV Wide Open Naloxone [Narcan] Med 01/06/17 12:47 Discontinued 2 mg IV NOW ONE Pulse Oximetry Stat Oth 01/06/17 11:01 Active EKG [EKG] Stat Ther 01/06/17 11:01 Draft Echo Spec/Color Dop W/O Contra Routine Ther 01/06/17 15:50 Ordered Transfer/Admit Order [TRANSFER] Routine Transfer 01/06/17 15:43 Ordered Result Diagrams: 01/06/17 11:09 01/06/17 11:09 - REASSESSMENT Reassessment #1 Time Reassessed: 12:48 Status: other Reassessment Comment: narcan ordered Reassessment #2 Time Reassessed: 13:20 Status: unchanged (after getting 2mg of Narcan IV, patient remained lethargic with no response to narcan) Reassessment Comment: see note Reassessment #3 Time Reassessed: 14:15 Status: unchanged Reassessment Comment: still sleeping - EKG 1 Time of EKG reading by physician:: 12:00 EKG Read and Signed by:: Hector Wilkins EKG Interpretation (*Must complete 3 of following elements*): Abnormal Rate: 66 Rhythm: accelerated junctional rhythm QRS: normal ST Wave: non-specific ST changes - XRAY 1 XRAY Study: Chest Impression: Normal XRAY Interpretation: nad - CT/MRI 1 CT Study: Head Impression: Abnormal CT Results: sinusitis, stable 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 - CONSULTS/PCP/HOSPITALIST Notification #1 *Consult/PCP/Hospitalist*: Eric with hospitalist Time Discussed: 14:30 Consult Disposition: Will see in ED, Admit Departure - Departure Date of Disposition Decision: 01/06/17 Time of Disposition Decision: 14:32 DIAGNOSIS: Hypotension, Decreased responsiveness, Altered mental status, Cirrhosis of liver, Overuse of medication Disposition: ADMITTED INPATIENT 09 Certified Medical Emergency: Emergent Condition: Stable Referrals and Follow-Ups: None,PCP [Primary Care Provider] - - Critical Care Note This patient required my direct & personal management of CC.: Yes Total Time (mins): 35 Critical Care Statement: This patient required my direct personal management to treat or rule out processes, the absence of which, could potentiallly result in sudden, clinically significant life or limb threatening deterioration. Attestation - Physician/ NICKOLAS Attestation The physician spent face to face time with patient:: Yes Advanced Practice Provider documentation review:: Supervising physician onsite and consulted in the evaluation and care of this patient. The physician did have a face to face encounter with the patient. This chart was documented by the indicated scribe, (Jhonny Klein, Scribe) and accurately reflects the services I performed and decisions made by me, Hector Wilkins MD, as attested by the provider's signature.
[2017-01-06] MEDS: HUMALOG SUBQ SCH ×2 (17:02→21:45)
[2017-01-06] MEDS ORDERED: VITAMIN D PO SCH (17:02)
--- NOTE | 2017-01-06 17:56 | Diag Imaging Result Doc PS360 ---
US ABDOMEN-COMPLETE - 01/06/2017 INDICATION: hypotension, cirrhosis, long COMPARISON: CT from 11/27/2016 FINDINGS: The liver is atrophic with a nodular contour compatible with cirrhosis. There is nonspecific gallbladder wall thickening is seen in cirrhotic patients. No tenderness over the gallbladder. Common bile duct measures 3 mm. There is a right renal cyst measuring 1.9 cm. This is stable from the prior CT. Otherwise both kidneys are normal. Pancreas and spleen are normal. Aorta, IVC, and main portal vein are patent. IMPRESSION: Advanced cirrhosis. Right renal cyst. Electronically signed by Sergo Thibodeaux 01/06/2017 5:53 PM
[2017-01-06] MEDS: NS 1,000 ML IV SCH (18:03)
[2017-01-06] MEDS: ROCEPHIN 1 GM in NS 50 ML IV SCH (18:03)
--- NOTE | 2017-01-06 18:35 | HISTORY AND PHYSICAL ---
PRIMARY CARE PHYSICIAN: Rosalie Portillo MD and he goes to the [place]. CHIEF COMPLAINT: Altered mental status. HISTORY OF PRESENT ILLNESS: Mr. Rendon is a 61-year-old, male, with a history of cirrhosis of the liver secondary to PAUL, type 2 diabetes, ITP, hyperlipidemia, sleep apnea, questionable narcotic dependence, who comes in today with altered mental status. Interestingly, the patient was discharged from our facility around 1 month ago for the same thing. This time he comes in after being found minimally responsive by his this morning in one of the rooms of the house. Yesterday, he was in his normal state of health. In fact, he drove to [place] to an appointment at the [place]. This morning, he was minimally responsive and his called 911 to have him brought to the ER. In the ER, the patient has been hypotensive and minimally responsive. Labs done today show that he has some leukocytosis, acute kidney injury, hyponatremia and elevated liver function tests and creatine kinase. Interestingly, his toxicology is positive for opiates and oxycodone. However, there are no reports of those medications and this was the case last time. There is no fever, no tachycardia, no real source of infection. Head CT was done. It did not show anything acute, chronic changes were noted. Chest x-ray was also negative. The patient does open his eyes to verbal stimulus, although his speech is somewhat slurred. He follows commands without focal deficits and is clearly dehydrated on physical exam. As such, he is going to be admitted for further treatment and evaluation. PAST MEDICAL HISTORY: 1. Cirrhosis of the liver secondary to PAUL. 2. Hyperlipidemia. 3. Diabetes mellitus type 2. 4. Hepatic encephalopathy. 5. ITP. 6. Morbid obesity. 7. Depression. 8. Iron deficiency anemia. 9. Sleep apnea. 10. Questionable opiate dependence. SURGICAL HISTORY: Had a splenectomy and C5-C6 fusion. FAMILY HISTORY: Noncontributory. REVIEW OF SYSTEMS: Fourteen-point review of systems obtained and found to be negative with the exception of the HPI. ALLERGIES: No known drug allergies. HOME MEDICATIONS: Lipitor 40 mg daily, Flexeril 10 mg b.i.d., vitamin D2 50, 000 units p.o. daily. Iron sulfate 325 mg t.i.d., Lasix 20 mg daily. Neurontin 300 mg at bedtime, Humulin 70/30 at 30 units at night, 50 units in the morning. Cozaar 25 mg daily. Corgard 10 mg daily. Protonix 40 mg daily. Xifaxan 550 mg p.o. b.i.d., Zoloft 50 mg at bedtime, Aldactone 100 mg daily. Flomax 0.4 mg every 24 hours. Zinc 220 mg p.o. daily. ALLERGIES: No known drug allergies. PHYSICAL EXAMINATION: VITAL SIGNS: Blood pressure is 90/48, heart rate 71, respiratory rate is 14, O2 saturation 94% on 2 L. Temperature is 97.7. GENERAL: Obese, male, lying in hospital bed, lethargic and minimally responsive. NEUROLOGIC: The patient opens his eyes to verbal stimulus. He is able to answer orientation questions correctly and follows commands without focal deficits. HEENT: Head is atraumatic, normocephalic. His pupils are equal, round, reactive to light. His sclerae is injected. His oral mucosa is dry. Trachea is midline. NECK: There is no JVD. CHEST: Clear to auscultation bilaterally. CV: Regular rate and rhythm. S1-S2 is noted. GI: Soft, nondistended. He does have some mild right upper quadrant tenderness to palpation. EXTREMITIES: No edema, clubbing or cyanosis. Pulses are palpable bilaterally. DIAGNOSTIC DATA: Head CT chronic changes. Nothing acute. EKG sinus rhythm without acute ST or T abnormalities. Chest x-ray negative for acute process. WBC 13.66, hemoglobin 12.8, hematocrit 35.9, platelet count 298. INR 1.25. ABG on room air, pH 7.31, CO2 of 45, O2 of 67. Lactate 2.5. Sodium 126, potassium 4.1, chloride 89 , CO2 of 20, anion gap 17, BUN 14, creatinine 1.9, glucose 153. T bili 1.14. AST 58, ALT 33, alkaline phosphatase 167. Ammonia 55. CK 248. CK-MB 7.3. Troponin is negative. Albumin 3.4. UA does not show anything acute. Toxicology positive for opiates and oxycodone. ASSESSMENT AND PLAN: 1. Toxic metabolic encephalopathy: This is likely multifactorial, but given the fact that he does not have any prescription opiates, toxic encephalopathy secondary to opiate use on top of possibly hepatic encephalopathy made worse with hypotension, as well. Obviously, we are going to stop all of his mind-altering substances. Monitor his neurologic status and continue IV fluids. We will continue his lactulose and rifaximin as well. While his ammonia is only 55, hypotension could certainly exacerbate any hepatic encephalopathy regardless of the actual ammonia number. We will also check an ultrasound of his right upper quadrant. 2. Hypotension: This is likely multifactorial to include opiate use, volume depletion and cirrhosis. Volume depletion is made evident with physical examination and renal insufficiency indicating volume depletion (prerenal azotemia). We are going to stop blood pressure medications for now. Give him IV fluids and continue to monitor his blood pressure closely. He does not appear to be infectious at this time. There is no obvious evidence of infectious etiology or sepsis, urine and chest x-ray are clean. Blood cultures have been obtained, however, but we will refrain from any antibiotic use at this time. Obviously this will change if infectious disease presents itself. 3. Acute kidney injury: Likely prerenal coupled with Aldactone, Lasix and ARB usage. We will stop all of these medications. Hydrate, check abdominal ultrasound and urine electrolytes. We are also hydrating. 4. Cirrhosis of the liver: We will continue Xifaxan and lactulose. We will check liver functions daily. 5. Elevated CKs: This is likely liver related hypotension as well possibly, but we will check an echocardiogram and trend his cardiac enzymes. 6. Diabetes mellitus. We will continue his home medications. Add pattern sugars and sliding scale insulin. Last hemoglobin A1c 8.5% last month. 7. Questionable opiate dependence: The patient is opiate and oxycodone positive on his urine screen although there was are no prescriptions for that noted. This will need to be followed up on closely. 8. Deep vein thrombosis prophylaxis. Will be provided with sequential compression devices and TEDs. Further recommendations to follow. Dictated by SHARON Lomeli for Tr Chow MD cc: SHARON Lomeli MD Marlin D. Gill, MD I have seen and and examined patient. I have provided face to face evaluation. I have also reviewed his labs and imagine studies. Patient presents with non focal encephalopathy likely drug likely prescription drug induced. The above plan is a reflexion of my opinion.BARRY CHEATHAM
[2017-01-06 18:58] LABS: CK INDEX 2.2 (0.0-2.5); CK-MB 23.45 ng/mL (0.0-5.0)
[2017-01-06] MEDS ORDERED: NEURONTIN PO SCH (21:00)
[2017-01-06] MEDS: HUMULIN 70/30 SUBQ SCH (21:00)
[2017-01-06] MEDS ORDERED: INSULIN PEN NEEDLES ONE (21:38)
[2017-01-06] MEDS: FLONASE NAS SCH (21:45)
[2017-01-06] MEDS: XIFAXAN PO SCH (21:45)
[2017-01-06] MEDS: NEURONTIN PO SCH (21:45)
[2017-01-06] MEDS: ZOLOFT PO SCH (22:21)
[2017-01-07] MEDS: NS 1,000 ML IV SCH ×4 (00:08→23:26)
[2017-01-07] MEDS ORDERED: NS 1,000 ML IV ONE (01:18)
[2017-01-07] MEDS: HUMALOG SUBQ SCH ×4 (06:00→20:36)
[2017-01-07] MEDS: PROTONIX PO SCH (06:00)
[2017-01-07 06:05] LABS: HEMATOCRIT 36.1 % (42.0-52.0); MCH 32.4 PG (27-31); MPV 10.5 FL (7.4-10.4); RBC 4.01 XMIL (4.7-6.1)
[2017-01-07] MEDS ORDERED: NEO-SYNEPHRINE 50 MG in NS 250 ML IV SCH (06:15)
[2017-01-07 06:51] LABS: CALCIUM 7.6 mg/dL (8.8-10.2); POTASSIUM 4.5 mmol/L (3.5-5.1); TOTAL BILIRUBIN 1.13 mg/dL (0.20-1.00); TOTAL PROTEIN 6.3 g/dL (6.3-8.3)
[2017-01-07] MEDS ORDERED: INSULIN PEN NEEDLES ONE (09:05)
[2017-01-07] MEDS: ZINC SULFATE PO SCH (09:07)
[2017-01-07] MEDS: FERROUS SULFATE PO SCH ×3 (09:07→17:31)
[2017-01-07] MEDS: XIFAXAN PO SCH ×2 (09:07→20:35)
[2017-01-07] MEDS: FLONASE NAS SCH ×2 (09:08→20:35)
[2017-01-07] MEDS: HUMULIN 70/30 SUBQ SCH ×2 (09:08→20:35)
--- NOTE | 2017-01-07 13:47 | ECHO REPORT ---
ORDER DATE: 01/06/2017 INDICATION: Hypotension, nonalcoholic cirrhosis, diabetes, sleep apnea. FINDINGS: 1. Right atrium appears normal in size. 2. There is mild tricuspid regurgitation. RV systolic pressure of 29. 3. Normal RV size and systolic function. 4. No significant pulmonic insufficiency. 5. Normal left atrial size with a volume index of 24. 6. No mitral prolapse. Trace mitral regurgitation. 7. Normal LV size, end-diastolic dimension of 4.4. Normal wall thicknesses with no evidence of left ventricular hypertrophy. Normal LV systolic function. Estimated EF of 60% with normal wall motion. 8. Aortic valve opens well. No evidence of stenosis or insufficiency. 9. Aorta appears normal visualized segments. 10. No pericardial effusion seen. cc: MD Young Oleary CRNP
--- NOTE | 2017-01-07 15:18 | PROGRESS NOTE ---
DATE: 01/07/2017 SUBJECTIVE: This morning, Mr. Rendon referred to be doing a lot better. Denies any syncopal episode or any shortness of breath. Patient has been complaining on some stuffiness of the nose and clearing up his throat with dark expectoration. OBJECTIVE: Vital signs: Blood pressure is 111/65, pulse of 78, respirations 18 , temperature is 98.7. General: Mr. Rendon is a 61-year-old, male. He is in bed, not in an remarkable distress. HEENT: Mucosa is pink and slightly dry. Anicteric. Acyanotic. Neck: Supple. Chest: Good air entry bilaterally. No crepitations. Cardiovascular: Regular rate and rhythm. Abdomen: Soft, distended. Nontender. Bowel sounds are present. There is fluid wave with shifting dullness. Extremities: No pedal edema. 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 There are no focal neurological deficits. DIAGNOSTIC STUDIES: An ultrasound of the abdomen shows advanced cirrhosis with right renal cysts. Laboratory Data: WBC is 14.92, hemoglobin is 13.0, platelet count of 272. Chemistry is reviewed. Sodium is up to 130, potassium is 4.8, chloride is 98, bicarb is 23, creatinine is also down to 1.3 from 1.9. ASSESSMENT: 1. Altered mental status on presentation secondary to toxic metabolic encephalopathy. Patient's drug screen was positive for opioids and OxyContin. When I asked the patient , he said he was having a lot of headaches the day before and he had to take extra of his opioid. His Lortab. He was not able to tell me how much he took, but I think this was a major part of his presentation. 2. Hypotension on presentation. We think is multifactorial. The patient was fluid depleted. Also had a lot of medications, opioids and diuretics that could have dropped his blood pressure. We have held all the narcotics and also the diuretics. Blood pressure is doing a lot better. The patient is getting adequate hydration. We plan to cut down on the fluid to 85 mL/hour. Continue with the hydration. 3. Acute kidney injury secondary to volume depletion. Diuretics have been withheld and the patient is getting hydration. Creatinine is improving. 4. Advanced cirrhosis of the liver. According to the patient this is due to fatty liver disease. He follows up with Gastroenterology in the [place] [facility]. 5. Diabetes mellitus. Stable. 6. Upper respiratory tract infection/sinusitis. Patient is currently on antibiotics and Flonase for the chronic sinusitis issue. I think in general, Mr. Rendon is stable. Blood pressure is a lot better. Still looks slightly dry. We are going to move him from the ICU to regular floor. We will get him diabetic and hepatic diet. Get him to move around. Hopefully, we can discharge him tomorrow. I was notified that his blood culture is growing gram positive cocci 1 out of 2. Will give him a dose of vancomycin and await the ID and sensitivity. Its possible to be a contaminant. cc: Tr Chow MD MTDD
[2017-01-07] MEDS ORDERED: VANCOMYCIN IV PER PHARMACY MISC SCH (16:00)
[2017-01-07] MEDS ORDERED: VANCOMYCIN 2,000 MG in NS 500 ML IV ONE (17:00)
[2017-01-07] MEDS: ROCEPHIN 1 GM in NS 50 ML IV SCH (17:30)
[2017-01-07] MEDS: ZOLOFT PO SCH (20:36)
[2017-01-07] MEDS: NEURONTIN PO SCH (20:36)
[2017-01-07] MEDS: LACTULOSE PO SCH (20:36)
[2017-01-07] MEDS ORDERED: XANAX PO SCH (21:00)
[2017-01-08] MEDS ORDERED: NORCO-5 PO ONE (01:57)
[2017-01-08 04:37] LABS: HEMOGLOBIN 12.7 g/dL (14.0-18.0); MCH 32.5 PG (27-31); MCHC 36.3 g/dL (33-37); MCV 89.5 FL (81-99); MPV 10.5 FL (7.4-10.4); RBC 3.91 XMIL (4.7-6.1)
[2017-01-08 04:56] LABS: AGAP 10; ALBUMIN 2.9 g/dL (3.5-5.0); ALKALINE PHOSPHATASE 150 U/L (32-122); BUN 11 mg/dL (8-22); CALCIUM 8.5 mg/dL (8.8-10.2); CHLORIDE 102 mmol/L (98-107); COSMO 270; GOT 78 U/L (10-34); GPT 36 U/L (10-44); POTASSIUM 4.7 mmol/L (3.5-5.1); SODIUM 135 mmol/L (136-145); TCO2 23 mmol/L (25-35); TOTAL BILIRUBIN 0.91 mg/dL (0.20-1.00); TOTAL PROTEIN 6.5 g/dL (6.3-8.3)
[2017-01-08] MEDS: HUMALOG SUBQ SCH ×2 (06:24→10:53)
[2017-01-08] MEDS: PROTONIX PO SCH (06:25)
[2017-01-08] MEDS: ZINC SULFATE PO SCH (08:04)
[2017-01-08] MEDS: LACTULOSE PO SCH (08:04)
[2017-01-08] MEDS: XIFAXAN PO SCH (08:04)
[2017-01-08] MEDS: FLONASE NAS SCH (08:05)
[2017-01-08] MEDS: HUMULIN 70/30 SUBQ SCH (08:05)
[2017-01-08] MEDS: FERROUS SULFATE PO SCH (08:05)
[2017-01-08] MEDS: NS 1,000 ML IV SCH (10:20)
[2017-01-08 13:22] VITALS: BP 117/61
--- NOTE | 2017-01-08 16:58 | PROGRESS NOTE ---
DATE: 01/08/2017 SUBJECTIVE: Today, Mr. Rendon referred to be doing fine. Denies of any complaint. He is not dizzy. OBJECTIVELY: Vital Signs: Blood pressure is 121/61, pulse of 78, respirations 17, temperature 98.3 degrees. Patient is saturating about 94% on 2 L. General: Mr. Rendon is a 61-year-old male. He is in bed. He is not in any distress. HEENT: Mucosa is pink and moist. Anicteric. Acyanotic. Neck: Supple. Chest: Good air entry bilateral. No crepitations. No rhonchi. Cardiovascular: Regular rate and rhythm. There is no murmurs. No rubs, no gallops. Abdomen: Soft, nontender. It is distended. There is some fluid wave with shifting dullness. Extremities: No pedal edema. 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 There is no focal neurological deficit. LABORATORY DATA: WBC is 13.09, hemoglobin is 12.7, platelet count of 331,000. Chemistry is reviewed. Sodium is up to 135 from 126. Potassium is 4.7, chloride is 102, bicarbonate is 23, glucose is 105. ASSESSMENT: 1. Altered mental status on presentation, secondary to global encephalopathy. We think this is related to toxic metabolic encephalopathy from opioid use. 2. Hypotension on presentation. Multifactorial including fluid depletion as well as prescription drug side effects. 3. Acute kidney injury secondary to volume depletion is improved. 4. Advanced cirrhosis of the liver secondary to fatty liver disease. [facility] 5. Diabetes mellitus insulin dependent. We will continue with his insulin. 6. Upper respiratory tract infection (acute on chronic sinusitis). We will continue with Augmentin and the Flonase. 7. Obstructive sleep apnea. Patient will continue with his CPAP at home and follow up with his sleep medicine team. 8. Coagulase-negative blood culture positive. This is 1 out of 2. We think it is a contaminate and not a true infection. In general, I think Mr. Rendon is relatively stable. Blood pressure is fine. He did not need pressors. He is going to be discharged home to follow up with his regular physicians. He has been advised to stay away from the narcotics which we think played a major role in his presenting symptoms. cc: Tr Chow MD [facility]
[2017-01-08] MEDS ORDERED: VANCOMYCIN 1,750 MG in NS 250 ML IV SCH (17:00)
[2017-01-08] MEDS ORDERED: AUGMENTIN PO SCH (21:00)
--- NOTE | 2017-01-09 16:29 | DISCHARGE SUMMARY ---
ADMISSION DATE: 01/06/2017 DISCHARGE DATE: 01/08/2017 CONSULTATIONS: None. PERTINENT PROCEDURES: 1. Head CT showed sinusitis, otherwise no acute disease or change from prior. 2. Echocardiogram showed an EF of 60% with normal wall motion. 3. Abdominal ultrasound showed advanced cirrhosis, right renal cyst. DISCHARGE DIAGNOSES: 1. Toxic metabolic encephalopathy. Toxicology screen was positive for opiates. Resolved. 2. Hypotension on presentation multifactorial secondary to fluid volume depletion, opiates and diuretics. Resolved. 3. Acute kidney injury secondary to volume depletion. Improved. 4. Advanced cirrhosis of the liver secondary to fatty liver disease. He follows gastroenterology at the [facility]. 5. Diabetes mellitus. Stable. 6. Upper respiratory infection, sinusitis. The patient currently on antibiotics and Flonase for chronic sinusitis issues. HOSPITAL COURSE: Mr. Rendon is a 61-year-old male with history of cirrhosis of the liver secondary to PAUL, type 2 diabetes, ITP, hyperlipidemia, sleep apnea, question narcotic dependence, who came to the ED with altered mental status. The patient was discharged from our facility around 1 month ago for the same thing. This time he comes in after being found minimally responsive by his in the mornings in one of the rooms from their residence. The patient had driven the day before to [place] to an appointment at the [place]. The morning of his admission he was found minimally responsive and his called 911. He was brought to the ED. He was found to be hypotensive. Lab data showed leukocytosis, acute kidney injury, hyponatremia and elevated liver function tests and CK. Interestingly his toxicology was positive for opiates and oxycodone, however there were no reports of those medications and that was the case on his last admission. No fever, no tachycardia or a source of infection. Head CT was done that did not show anything acute. Chronic changes were noted. Chest x-ray was also negative. He was admitted to the ICU for toxic encephalopathy secondary to opiates, even though he has no prescription for opiates. He was started on IV hydration, continued on his Xifaxan and lactulose. His ammonia level was only 55. He felt like his hypotension was multifactorial including his opiate use volume depletion. He was monitored 2 days in the ICU. He is more awake and more alert. His blood pressures are now stable. We did transfer him from the ICU to regular floor, however he is being discharged from the ICU secondary to no floor beds being available. His acute kidney injury resolved. Blood pressures are stable. He is appropriate for discharge home today with family. VITAL SIGNS: Temperature is 98.1 degrees, heart rate 78, respirations 20, blood pressure 117/61, O2 is 95%. DISCHARGE DIET: Diabetic. DISCHARGE MEDICATIONS: 1. Augmentin 875 mg p.o. b.i.d. 2. Lipitor 40 mg p.o. daily. 3. Flexeril 10 mg p.o. b.i.d. 4. Vitamin D 50,000 units p.o. every 7 days. 5. Ferrous sulfate 325 mg p.o. t.i.d. 6. Flonase 2 sprays nasal daily, b.i.d. 7. Lasix 20 mg p.o. daily. 8. Neurontin 100 mg p.o. at bedtime. 9. Humulin 70/30, 30 units subcutaneous at bedtime. 10. Humulin 70/30, 50 units subcutaneous q.a.m. 11. Cozaar 25 mg p.o. daily. 12. Corgard 10 mg p.o. daily. 13. Protonix 40 mg p.o. daily. 14. Xifaxan 550 mg p.o. b.i.d. 15. Zoloft 50 mg p.o. at bedtime. 16. Aldactone 100 mg p.o. daily. 17. Flomax 0.4 mg p.o. at bedtime. 18. Zinc sulfate 220 mg p.o. daily. FOLLOW UP: Mr. Rendon is being discharged home with his . He can follow up with his PCP, who is Dr. Portillo, as well as [facility]. He can return to the ED for any worsening of symptoms. Dictated by SHARON Nevarez for Tr Chow MD cc: MD Rosalie Sen MD Time spent for discharge 35 minutes MTDD
== END 2017-01-08 12:56 | disposition home or self-care (01) ==
LOC: ED 10:55 → 4N 16:24 → EDIPHOLD 16:42 → ICU 21:45
PROVIDERS: ATTEND Internal Medicine

== ENCOUNTER 2017-02-01 18:41 | Inpatient (IN) ==
[2017-02-01] MEDS ORDERED: HUMALOG SUBQ ONE (20:28)
[2017-02-01 20:29] LABS: MANUAL DIFF NEEDED? NO
[2017-02-01 20:32] LABS: BASO% 0.6 % (0.0-0.8); EOS# 0.77 X1000 (0.0-0.7); EOS% 6.1 % (0.0-10.0); HEMATOCRIT 35.7 % (42.0-52.0); HEMOGLOBIN 12.9 g/dL (14.0-18.0); IMM GRAN# 0.03 X1000 (0.0-0.04); IMM GRAN% 0.2 % (0.0-0.5); LYMPH# 3.29 X1000 (1.2-3.4); LYMPH% 25.9 % (20.5-51.1); MCHC 36.1 g/dL (33-37); MCV 88.6 FL (81-99); MONO# 1.91 X1000 (0.11-0.59); MPV 11.1 FL (7.4-10.4); NEUT% 52.2 % (42.2-75.2); PLT 219 X1000 (130-400); RBC 4.03 XMIL (4.7-6.1)
[2017-02-01 20:39] LABS: URINE SOURCE CLEAN CATCH
[2017-02-01 20:45] LABS: BILIRUBIN URINE NEGATIVE (NEGATIVE); BLOOD URINE NEGATIVE (NEGATIVE); COLOR YELLOW; GLUCOSE URINE >1000 mg/dL (NEGATIVE); LEUKOCYTES URINE NEGATIVE (NEGATIVE); NITRITE URINE NEGATIVE (NEGATIVE); PROTEIN URINE TRACE mg/dL (NEGATIVE); SP GRAVITY URINE 1.019; TURBIDITY URINE HAZY (CLEAR); UROBILINOGEN URINE NORMAL (NORMAL)
[2017-02-01 20:47] LABS: URINE MICRO REVIEW NEEDED? YES
[2017-02-01 20:50] LABS: UR EPITHELIAL CELLS <10 /HPF (<10); URINE BACTERIA NEGATIVE /HPF; URINE CULTURE NEEDED? YES; URINE RBC <10 /HPF (<10)
[2017-02-01 20:56] LABS: URINE CASTS NONE SEEN; URINE CRYSTALS NONE SEEN; URINE SMALL ROUND CELLS NONE SEEN
[2017-02-01 21:11] LABS: ALBUMIN 3.2 g/dL (3.5-5.0); TOTAL BILIRUBIN 0.95 mg/dL (0.20-1.00); TOTAL PROTEIN 6.2 g/dL (6.3-8.3)
[2017-02-01 21:12] LABS: POTASSIUM 6.3 mmol/L (3.5-5.1)
[2017-02-01] MEDS ORDERED: NS 500 ML IV ONE (21:16)
[2017-02-01] MEDS ORDERED: CALCIUM GLUCONATE 1 GM in NS 50 ML IV ONE (21:25)
[2017-02-01] MEDS ORDERED: LACTULOSE PO ONE (21:25)
[2017-02-01 21:41] LABS: ALLEN TEST YES; BE -1.1 mmoll (-3.0-3.0); BLOOD TYPE ARTERIAL; DRAW SITE R BRACHIAL; METHB 1.3 % (0.0-1.5); O2(CT) 17.2 mL/dL (15.0-23.0); PCO2(98.6) 45 mmHg (35-45); PO2(98.6) 69 mmHg (60-100); SAMPLE BLOOD; SAO2 96.7 % (95.0-100.0); THB 13.1 g/dL (11.5-17.4); pH(98.6) 7.35 (7.35-7.45)
[2017-02-01 21:42] LABS: MODALITY ROOM AIR
[2017-02-01 21:44] LABS: INR 1.17; PROTIME 12.4 Seconds (9.2-11.7)
--- NOTE | 2017-02-01 21:57 | Diag Imaging Result Doc PS360 ---
EXAM: CHEST-2 VIEWS HISTORY: dyspnea TECHNIQUE: AP upright and lateral chest COMMENT: There is subsegmental atelectasis in both bases. This appears somewhat worse than on 01/06/2017. Otherwise has been no significant change. IMPRESSION: Bibasilar atelectasis. Electronically signed by Alejo Rossi 02/01/2017 9:55 PM
[2017-02-01] MEDS ORDERED: ALBUTEROL NEB INH ONE (22:44)
[2017-02-01 23:51] LABS: CALCIUM 10.2 mg/dL (8.8-10.2); POTASSIUM 5.2 mmol/L (3.5-5.1)
[2017-02-02] MEDS ORDERED: NS 1,000 ML IV ONE (00:49)
[2017-02-02] MEDS ORDERED: NS 1,000 ML ONE (00:51)
[2017-02-02] MEDS: ZOSYN 4.5 GM in NS 100 ML IV SCH ×4 (01:56→18:09)
[2017-02-02] MEDS ORDERED: INSULIN PEN NEEDLES ONE (01:56)
[2017-02-02] MEDS: HUMULIN 70/30 SUBQ SCH ×3 (02:00→20:13)
[2017-02-02] MEDS ORDERED: NS 500 ML IV ONE (03:45)
[2017-02-02] MEDS: NS 1,000 ML IV SCH ×4 (03:58→23:19)
[2017-02-02 04:30] LABS: UR AMPHETAMINES QUAL NONE DETECTED (NONE DETECT); UR BARBITUATES QUAL NONE DETECTED (NONE DETECT); UR BENZODIAZEPIN QUAL NONE DETECTED (NONE DETECT); UR CANNABINOIDS QUAL NONE DETECTED (NONE DETECT); UR COCAINE QUAL NONE DETECTED (NONE DETECT); UR METHADONE QUAL NONE DETECTED (NONE DETECT); UR OPIATES QUAL NONE DETECTED (NONE DETECT); UR OXYCODONE QUAL PRESUMPTIVE POSITIVE (NONE DETECT); UR PCP QUAL NONE DETECTED (NONE DETECT)
[2017-02-02 04:46] LABS: MANUAL DIFF NEEDED? NO
[2017-02-02 04:50] LABS: BASO% 0.6 % (0.0-0.8); EOS# 1.12 X1000 (0.0-0.7); EOS% 6.7 % (0.0-10.0); HEMATOCRIT 32.9 % (42.0-52.0); IMM GRAN# 0.05 X1000 (0.0-0.04); IMM GRAN% 0.3 % (0.0-0.5); LYMPH# 5.26 X1000 (1.2-3.4); LYMPH% 31.6 % (20.5-51.1); MCH 32.1 PG (27-31); MCHC 36.5 g/dL (33-37); MONO# 2.46 X1000 (0.11-0.59); MONO% 14.8 % (1.7-9.3); MPV 11.1 FL (7.4-10.4); PLT 207 X1000 (130-400); RBC 3.74 XMIL (4.7-6.1)
--- NOTE | 2017-02-02 05:09 | EKG Report ---
Test Performed on : 02/01/2017 10:36:48 PM Test Reason : WEAKNESS Blood Pressure : / mmHG Vent. Rate : 060 BPM Atrial Rate : 060 BPM P-R Int : 182 ms QRS Dur : 096 ms QT Int : 394 ms P-R-T Axes : 056 011 027 degrees QTc Int : 394 ms Normal sinus rhythm. Low voltage QRS Borderline ECG When compared with ECG of 06-JAN-2017 10:49, Sinus rhythm. has replaced Junctional rhythm. ST no longer depressed in Anterior leads QT has shortened Unconfirmed Result
[2017-02-02] MEDS ORDERED: LEVOPHED 8 MG in D5 1/2 NS 250 ML IV SCH (05:15)
[2017-02-02 05:27] LABS: ALBUMIN 2.5 g/dL (3.5-5.0); CALCIUM 8.8 mg/dL (8.8-10.2); POTASSIUM 4.3 mmol/L (3.5-5.1); TOTAL BILIRUBIN 0.81 mg/dL (0.20-1.00); TOTAL PROTEIN 5.4 g/dL (6.3-8.3)
[2017-02-02] MEDS: PRILOSEC PO SCH (06:10)
--- NOTE | 2017-02-02 06:48 | Diag Imaging Result Doc PS360 ---
CT HEAD W/O CONTRAST - 02/02/2017 INDICATION: Fatigue TECHNIQUE: A CT dose reduction protocol was used. COMPARISON: 01/06/2017 FINDINGS: The ventricles and sulci are normal in size and contour. There are some stable trace chronic microvascular ischemic changes of the white matter in the frontal lobes. There are some stable old lacunar is in the basal ganglia on the left. No intracranial mass or hemorrhage. The skull is intact. The sinuses, mastoids, and middle ears are clear. IMPRESSION: No acute disease or change from prior. Electronically signed by Sergo Thibodeaux 02/02/2017 6:46 AM
--- NOTE | 2017-02-02 06:52 | Diag Imaging Result Doc PS360 ---
CT THORAX W/O CONTRAST - 02/02/2017 INDICATION: AMS TECHNIQUE: A CT dose reduction protocol was used. COMPARISON: 11/27/2016 FINDINGS: There is no adenopathy. Stable advanced coronary artery disease. Heart size is normal. There is some stable multifocal linear atelectasis in the lung bases. No new or focal infiltrates. There are moderate degenerative changes of the spine. No acute or suspicious bony lesion. IMPRESSION: No definite acute disease. Electronically signed by Sergo Thibodeaux 02/02/2017 6:49 AM
--- NOTE | 2017-02-02 06:54 | Diag Imaging Result Doc PS360 ---
CT ABDOMEN/PELVIS W/O CONTRAST - 02/02/2017 INDICATION: abdominal pain TECHNIQUE: A CT dose reduction protocol was used. COMPARISON: 11/27/2016 FINDINGS: Stable cirrhotic liver. No definite liver masses. Stable splenectomy changes. No radiodense renal stones. No hydronephrosis or hydroureter. Stable diffuse constipation. No bowel obstruction or inflammation. No free air or free fluid. Urinary bladder, prostate, and rectum are normal. There are moderate degenerative changes of the spine. No acute or suspicious bony lesion. IMPRESSION: Constipation. Cirrhosis. No acute findings. Electronically signed by Sergo Thibodeaux 02/02/2017 6:51 AM
[2017-02-02] MEDS: FLONASE NAS SCH ×2 (09:59→20:05)
[2017-02-02] MEDS: LIPITOR PO SCH (10:02)
[2017-02-02] MEDS: XIFAXAN PO SCH ×2 (10:02→20:06)
[2017-02-02] MEDS: BIDEX PO SCH (17:31)
[2017-02-02] MEDS ORDERED: NEURONTIN PO SCH (21:00)
[2017-02-03] MEDS: ZOSYN 4.5 GM in NS 100 ML IV SCH ×2 (00:07→06:18)
[2017-02-03 05:16] LABS: MANUAL DIFF NEEDED? NO
[2017-02-03 05:21] LABS: BASO% 0.7 % (0.0-0.8); EOS# 0.96 X1000 (0.0-0.7); EOS% 6.7 % (0.0-10.0); HEMATOCRIT 36.6 % (42.0-52.0); HEMOGLOBIN 13.1 g/dL (14.0-18.0); IMM GRAN# 0.04 X1000 (0.0-0.04); IMM GRAN% 0.3 % (0.0-0.5); LYMPH# 3.56 X1000 (1.2-3.4); LYMPH% 24.7 % (20.5-51.1); MCH 31.7 PG (27-31); MCHC 35.8 g/dL (33-37); MCV 88.6 FL (81-99); MONO# 2.43 X1000 (0.11-0.59); MONO% 16.9 % (1.7-9.3); MPV 11.3 FL (7.4-10.4); NEUT% 50.7 % (42.2-75.2); PLT 212 X1000 (130-400); RBC 4.13 XMIL (4.7-6.1)
[2017-02-03 05:39] LABS: ALBUMIN 2.8 g/dL (3.5-5.0); CALCIUM 9.2 mg/dL (8.8-10.2); POTASSIUM 4.7 mmol/L (3.5-5.1); TOTAL BILIRUBIN 1.05 mg/dL (0.20-1.00)
[2017-02-03] MEDS: PRILOSEC PO SCH (06:18)
[2017-02-03] MEDS: FLONASE NAS SCH (08:14)
[2017-02-03] MEDS: BIDEX PO SCH ×2 (08:14→13:28)
[2017-02-03] MEDS: XIFAXAN PO SCH (08:15)
[2017-02-03] MEDS: HUMULIN 70/30 SUBQ SCH (08:15)
[2017-02-03] MEDS: LIPITOR PO SCH (08:15)
[2017-02-03] MEDS: NS 1,000 ML IV SCH ×2 (12:11→13:29)
[2017-02-03 12:12] VITALS: BP 114/67
== END 2017-02-03 16:00 | disposition home or self-care (01) ==
LOC: ED 18:41 → ICU 02-02 01:05 → SUATTDRO 02-02 01:05
PROVIDERS: ATTEND Internal Medicine